=== PATIENT | male | born 1970 | race Two or more races ===

== ENCOUNTER 2018-10-10 10:00 | Inpatient (IN) | payer OTHER ==
--- NOTE | 2018-10-10 11:02 | PDOC ---
History of Present Illness - General History Source: Patient Exam Limitations: No Limitations <Katina Varghese - Last Filed: 10/10/18 15:07> - History of Present Illness Initial Comments: The patient is a 48 year old male, with a significant PMH of DM (compliant with PO meds), who presents to the emergency department today complaining of rectal bleeding for 2 weeks. Patient notes he has been noticing bright red blood in his stool and streaking the toilet bowl for the past two weeks. He notes he passes stool, without any pain, approximately twice a day. He reports associated diffuse achy abdominal pain, which is constant without a trigger. He also notes associated mild low back pain. Patient has tried motrin without relief. Patient states he saw Dr. Valladares yesterday, who prompted him to visit the ED to get checked. Patient admits to having history of same symptoms approximately 6 months ago, but did not follow up with his primary care doctor. The patient denies chest pain, shortness of breath, headache and dizziness. Denies fever, chills, nausea, vomit, diarrhea and constipation. Denies dysuria, frequency, urgency and hematuria. Denies recent travel or consumption of raw meats. Allergies: NKA Past surgical history: None reported Social history: No reported PCP: Dr. Valladares 10/10/18 11:32 <Lorrie Chowdhury - Last Filed: 10/10/18 16:19> - General Chief Complaint: Rectal Bleed Stated Complaint: RECTAL BLEED/PAIN, ACUTE Time Seen by Provider: 10/10/18 11:02 Past History - Past Medical History COPD: No Diabetes: Yes Hypercholesterolemia: Yes - Surgical History Appendectomy: Yes - Suicide/Smoking/Psychosocial Hx Smoking History: Never smoked Number of Cigarettes Smoked Daily: 3 Information on smoking cessation initiated: No Hx Alcohol Use: Yes (occasional) Drug/Substance Use Hx: No Substance Use Type: None <Katina Varghese - Last Filed: 10/10/18 15:07> <Lorrie Chowdhury - Last Filed: 10/10/18 16:19> - Past Medical History Allergies/Adverse Reactions: Allergies Allergy/AdvReac Type Severity Reaction Status Date / Time No Known Allergies Allergy Verified 10/10/18 10:04 Home Medications: Ambulatory Orders Ondansetron [Zofran Odt -] 4 mg SL TID #21 od.tablet 05/29/14 Sitagliptin Phos/Metformin HCl [Janumet 50-1,000 mg Tablet] 1 tab PO BID Review of Systems - Review of Systems Comments:: GENERAL/CONSTITUTIONAL: No fever or chills. No weakness. HEAD, EYES, EARS, NOSE AND THROAT: No change in vision. No ear pain or discharge. No sore throat. CARDIOVASCULAR: No chest pain or shortness of breath. RESPIRATORY: No cough, wheezing, or hemoptysis. GASTROINTESTINAL: +Rectal bleeding, with bright red blood in stool. No nausea, vomiting, diarrhea or constipation. GENITOURINARY: No dysuria, frequency, or change in urination. MUSCULOSKELETAL: +Diffuse achy abdominal pain. +Mild low back pain. No joint or muscle swelling. No neck pain. SKIN: No rash NEUROLOGIC: No headache, vertigo, loss of consciousness, or change in strength/ sensation. ENDOCRINE: No increased thirst. No abnormal weight change. HEMATOLOGIC/LYMPHATIC: No anemia, easy bleeding, or history of blood clots. ALLERGIC/IMMUNOLOGIC: No hives or skin allergy. 10/10/18 11:33 <Lorrie Chowdhury - Last Filed: 10/10/18 16:19> *Physical Exam - Vital Signs Last Vital Signs Temp Pulse Resp BP Pulse Ox 98 F 97 H 19 159/95 99 10/10/18 10:02 10/10/18 10:02 10/10/18 10:02 10/10/18 10:02 10/10/18 10:02 <Katina Varghese - Last Filed: 10/10/18 15:07> - Vital Signs Last Vital Signs Temp Pulse Resp BP Pulse Ox 98 F 97 H 19 159/95 99 10/10/18 10:02 10/10/18 10:02 10/10/18 10:02 10/10/18 10:02 10/10/18 10:02 - Physical Exam Comments: GENERAL: The patient is in no acute distress. HEAD: Normal with no signs of trauma. EYES: PERRLA, EOMI, sclera anicteric, conjunctiva clear. ENT: Ears normal, nares patent, oropharynx clear without exudates. Moist mucous membranes. NECK: Normal range of motion, supple without lymphadenopathy, JVD, or masses. LUNGS: Breath sounds equal, clear to auscultation bilaterally. No wheezes, and no crackles. HEART:Regular rate and rhythm, normal S1 and S2 without murmur, rub or gallop. ABDOMEN: Soft, nontender, normoactive bowel sounds. No distention. No guarding, no rebound. No masses palpable. RECTAL: +Blood tinged fluid present around rectum. No external hemorrhoids. EXTREMITIES: Normal range of motion, no edema. No clubbing or cyanosis. No erythema, or tenderness. NEUROLOGICAL: Cranial nerves II through XII grossly intact. Normal speech. No focal neurological deficits. MUSCULOSKELETAL: Back non-tender to palpation, no CVA tenderness SKIN: Warm, Dry, normal turgor, no rashes or lesions noted. 10/10/18 11:42 <Lorrie Chowdhury - Last Filed: 10/10/18 16:19> Moderate Sedation - Procedure Monitoring Vital Signs: Procedure Monitoring Vital Signs Temperature 98 F 10/10/18 10:02 Pulse Rate 97 H 10/10/18 10:02 Respiratory Rate 10/10/18 10:02 Blood Pressure 159/95 10/10/18 10:02 O2 Sat by Pulse Oximetry (%) 99 10/10/18 10:02 <Katina Varghese - Last Filed: 10/10/18 15:07> - Procedure Monitoring Vital Signs: Procedure Monitoring Vital Signs Temperature 98 F 10/10/18 10:02 Pulse Rate 97 H 10/10/18 10:02 Respiratory Rate 10/10/18 10:02 Blood Pressure 159/95 10/10/18 10:02 O2 Sat by Pulse Oximetry (%) 99 10/10/18 10:02 <Lorrie Chowdhury - Last Filed: 10/10/18 16:19> ED Treatment Course - LABORATORY CBC & Chemistry Diagram: 10/10/18 10:56 10/10/18 10:56 <Katina Varghese - Last Filed: 10/10/18 15:07> - LABORATORY CBC & Chemistry Diagram: 10/10/18 10:56 10/10/18 10:56 - ADDITIONAL ORDERS Additional order review: Laboratory Results 10/10/18 10:56 PT with INR 11.00 INR 0.93 PTT (Actin FS) 30.9 10/10/18 10:56 RBC 4.31 MCV 84.1 MCHC 32.0 RDW 13.1 MPV 8.2 Neutrophils % 57.7 Lymphocytes % 25.2 Monocytes % 10.9 H Eosinophils % 4.9 H Basophils % 1.3 - RADIOLOGY Radiograph Interpretation: EXAM#: TYPE/EXAM: RESULT: [id number] CT/ABDOMEN PELVIS CT W/O CONTR Abdomen and pelvis CT (without contrast) IMPRESSION: No definite CT findings of acute pathology are identified involving the gastrointestinal tract. Diffuse colonic fecal retention which is probably moderate. The urinary bladder volume is approximately 600 mL - ? somewhat prominent physiologic distention versus early/developing retention. Additional evaluation utilizing pre and post void sonography may be considered. Reported By: Gregg Hernandez MD 10/10/18 13:31 10/10/18 14:13 - Consult/PCP Time Called: 14:21 (Called Dr. Valladares's call service, awaiting call back) Case discussed with personal care physician: Jj Valladares Case discussed with consulting physician: Zully Coleman (4:[address] Coleman concering patient's care ) - Additional Consults Time Called: 14:51 (Spoke with Dr. Valladares concerning patient's care ) Time Called: 15:05 (Spoke with Dr. Castillo concerning patient's care) <Lorrie Chowdhury - Last Filed: 10/10/18 16:19> Medical Decision Making - Medical Decision Making 10/10/18 15:08 Laboratory Tests 06/11/18 06/11/18 10/10/18 17:56 17:56 10:56 WBC 6.0 6.9 Hgb 13.0 11.6 L Hct 38.5 36.3 Plt Count 274 250 INR BUN 22 H Creatinine 1.2 Stool Occult Blood 10/10/18 10/10/18 10/10/18 10:56 10:56 11:10 WBC Hgb Hct Plt Count INR 0.93 BUN 27 H Creatinine 1.8 H Stool Occult Blood Positive CT: constipation, no colitis Case reviewed with Dr Valladares He is concerned about this patient and would like him to be admitted Call placed to Gokul Marrero, requesting Dr Hipolito Ruiz pace call <Katina Varghese - Last Filed: 10/10/18 15:07> *DC/Admit/Observation/Transfer - Discharge Dispostion Decision to Admit order: Yes <Katina Varghese - Last Filed: 10/10/18 15:07> - Attestations Scribe Attestion: Documentation prepared by OLMAN Navarrete, acting as medical sociologist for Katina Varghese MD/DO. 10/10/18 11:33 <Lorrie Chowdhury - Last Filed: 10/10/18 16:19> Diagnosis at time of Disposition: Rectal bleeding - Discharge Dispostion Condition at time of disposition: Stable
[2018-10-10 11:09] LABS: BASO % 1.3 % (0-2.0); EOS % 4.9 % (0-4.5); HEMATOCRIT 36.3 % (35.4-49); HEMOGLOBIN 11.6 GM/dL (11.7-16.9); LYMPH % 25.2 % (8-40); MCH 26.9 pg (25.7-33.7); MEAN CELL VOLUME 84.1 fl (80-96); MEAN PLT VOLUME 8.2 fl (7.5-11.1); MONO % 10.9 % (3.8-10.2); NEUT % 57.7 % (42.8-82.8); PLATELET COUNT 250 K/MM3 (134-434); RBC 4.31 M/mm3 (4.00-5.60); RDW 13.1 % (11.9-15.9); WHITE BLOOD COUNT 6.9 K/mm3 (4.0-10.0)
[2018-10-10] MEDS ORDERED: SODIUM CHLORIDE 1,000 ML IV STA (11:17)
[2018-10-10 11:21] LABS: INR 0.93 (0.83-1.09)
[2018-10-10 11:24] LABS: ACTIVATED PTT 30.9 SECONDS (25.2-36.5)
[2018-10-10 11:38] LABS: ALBUMIN 3.3 g/dl (3.4-5.0); ALK PHOS 86 U/L (45-117); ANION GAP 5 MMOL/L (8-16); BILIRUBIN,TOTAL 0.2 mg/dL (0.2-1); BLOOD UREA NITROGEN 27 mg/dL (7-18); CALCIUM 8.5 mg/dL (8.5-10.1); CHLORIDE 106 mmol/L (98-107); CO2 26 mmol/L (21-32); CREATININE 1.8 mg/dL (0.55-1.3); GLUCOSE,RANDOM 206 mg/dL (74-106); POTASSIUM 4.4 mmol/L (3.5-5.1); SGOT/AST 15 U/L (15-37); SGPT/ALT 29 U/L (13-61); SODIUM 138 mmol/L (136-145); TOT PROT 6.8 g/dl (6.4-8.2)
--- NOTE | 2018-10-10 17:56 | HP ---
Admitting History and Physical - Primary Care Physician PCP: Jj Valladares ([facility]) - Admission Chief Complaint: Rectal bleeding History of Present Illness: The patient is a 48 year old male, with a significant PMH of DM (compliant with PO meds), who presents to the emergency department today complaining of rectal bleeding for 2 weeks. Patient notes he has been noticing bright red blood in his stool and streaking the toilet bowl for the past two weeks. He notes he passes stool, without any pain, approximately twice a day. He reports associated diffuse achy abdominal pain, which is constant without a trigger. He also notes associated mild low back pain. Patient has tried motrin without relief. Patient states he saw Dr. Valladares yesterday, who prompted him to visit the ED to get checked. Patient admits to having history of same symptoms approximately 6 months ago, but did not follow up with his primary care doctor. The patient denies chest pain, shortness of breath, headache and dizziness. Denies fever, chills, nausea, vomit, diarrhea and constipation. Denies dysuria, frequency, urgency and hematuria. Denies recent travel or consumption of raw meats. History Source: Patient Limitations to Obtaining History: No Limitations - Past Medical History Cardiovascular: Yes: Hyperlipdemia Gastrointestinal: Yes: Constipation, GI Bleed Renal/: Yes: BPH Endocrine: Yes: Diabetes Mellitus (NIDDM) - Smoking History Smoking history: Never smoked Aproximately how many cigarettes per day: 3 - Alcohol/Substance Use Hx Alcohol Use: Yes (occasional) Home Medications - Allergies Allergies/Adverse Reactions: Allergies Allergy/AdvReac Type Severity Reaction Status Date / Time No Known Allergies Allergy Verified 10/10/18 10:04 - Home Medications Home Medications: Ambulatory Orders Aspirin [ASA -] 81 mg PO DAILY 10/10/18 Glimepiride 4 mg PO DAILY 10/10/18 Krill Oil 10/10/18 Simvastatin 20 mg PO DAILY 10/10/18 Sitagliptin Phos/Metformin HCl [Janumet 50-500 mg Tablet] 1 each PO HS 10/10/18 Trulicity 10/10/18 Review of Systems - Review of Systems Constitutional: reports: No Symptoms Eyes: reports: No Symptoms HENT: reports: No Symptoms Neck: reports: No Symptoms Cardiovascular: reports: No Symptoms Respiratory: reports: No Symptoms Gastrointestinal: reports: Constipation, Rectal Bleeding Genitourinary: reports: No Symptoms Breasts: reports: No Symptoms Reported Musculoskeletal: reports: No Symptoms Integumentary: reports: No Symptoms Neurological: reports: No Symptoms Endocrine: reports: No Symptoms Hematology/Lymphatic: reports: No Symptoms Psychiatric: reports: No Symptoms Physical Examination Vital Signs: Vital Signs Temperature 98.0 F 10/10/18 14:00 Pulse Rate 84 10/10/18 14:00 Respiratory Rate 18 10/10/18 14:00 Blood Pressure 145/82 10/10/18 14:00 O2 Sat by Pulse Oximetry (%) 98 10/10/18 14:00 Constitutional: Yes: Well Nourished, No Distress, Calm Cardiovascular: Yes: Regular Rate and Rhythm Respiratory: Yes: Regular Gastrointestinal: Yes: Normal Bowel Sounds, Soft Musculoskeletal: Yes: WNL Extremities: Yes: WNL Edema: No Peripheral Pulses WNL: Yes Neurological: Yes: Alert, Oriented Psychiatric: Yes: Alert, Oriented Labs: CBC, BMP 10/10/18 10:56 10/10/18 10:56 Imaging - Results Cat Scan: Report Reviewed Problem List - Problems (1) Rectal bleeding Assessment/Plan: -Guaiac positive -GI consult -PPI -IVF -Miralax for constipation -last BM today, mild constipation and straining during BM Code(s): K62.5 - HEMORRHAGE OF ANUS AND RECTUM (2) LISE (acute kidney injury) Assessment/Plan: -U/S renal/bladder -CT abd/pelvis reviewed -bladder scan now, insert kohler if retaining >300 ml -monitor trend -Nephrology consult -IVF -last Cr 1.48 outpatient in 09/2018 Code(s): N17.9 - ACUTE KIDNEY FAILURE, UNSPECIFIED (3) Diabetes Assessment/Plan: -BGM AC HS -diabetic clear liquid diet for now -Novolog sliding scale -last A1c 7.3 outpatient -Repeat A1C -endocrine consult -Avoid oral hypoglycemics, given renal function Code(s): E11.9 - TYPE 2 DIABETES MELLITUS WITHOUT COMPLICATIONS (4) Hyperlipidemia Assessment/Plan: -outpatient labs from Dr Valladares's office show LDL of 184 mg/dl in 09/2018 -Only on simvastratin 20 mg MWF -d/c simvastatin -initiate high intensity statin, atorvastatin 40 mg po hs will LDL goal of <70 mg/dl Code(s): E78.5 - HYPERLIPIDEMIA, UNSPECIFIED Assessment/Plan see problem list is a [employer] assistant, spoke to her over the phone about assessment and plan. patient's non compliance is a major issue
[2018-10-10 18:45] VITALS: BMI 33.0
[2018-10-10] MEDS: PANTOPRAZOLE SODIUM 80 MG in SODIUM CHLORIDE 100 ML IVPB SCH (18:46)
[2018-10-10] MEDS: SODIUM CHLORIDE 1,000 ML IV SCH (18:46)
--- NOTE | 2018-10-10 19:34 | CONS ---
DATE OF CONSULTATION: DATE OF DICTATION: 10/10/2018 GASTROENTEROLOGY CONSULTATION HISTORY OF PRESENT ILLNESS: The patient is a 48-year-old man with a past medical history of diabetes and hyperlipidemia, appendectomy in the past who reports complaints of intermittent hematochezia over the past couple of weeks. He reports some more episodes approximately 6 months ago and never sought medical attention. He also does admit to having constipation with some achy abdominal pain which has been also intermittent over the past couple of months. He denies any melena, any nausea, vomiting, or hematemesis, or weight loss, syncope. PAST MEDICAL AND SURGICAL HISTORY: As listed in the HPI. Of note, he has never had an endoscopic evaluation in the past. ALLERGIES: No known drug allergies. SOCIAL HISTORY: Does not smoke. Occasional alcohol. No intravenous drug abuse. HOME MEDICATIONS: Reviewed. FAMILY HISTORY: No history of GI or oncological malignancy. REVIEW OF SYSTEMS: Negative except for pertinent positives in the HPI. PHYSICAL EXAMINATION: VITAL SIGNS: Temperature 98, pulse 84, respiratory rate 12, blood pressure 147/87, pulse oximetry 97% on room air. GENERAL: In no acute distress. Pleasant man. HEENT: Anicteric sclerae. CARDIOVASCULAR: S1, S2, regular rate and rhythm. LUNGS: Bilaterally clear to auscultation. ABDOMEN: Soft, nontender. EXTREMITIES: No edema. LABORATORY: White blood cell count 6.9, hemoglobin and hematocrit 11/36, MCV 84, platelet count 250. INR 0.93. Sodium 138, potassium 4.4, BUN/creatinine 27/1.8, glucose 206, total bilirubin 0.2, AST/ALT 15/29 respectively, alkaline phosphatase 86. CT scan of the abdomen and pelvis was performed in the emergency room without contrast revealed no acute pathology, diffuse colonic fecal retention which is moderate, questionable physiological distention of the urinary bladder versus retention. IMPRESSION: Intermittent episodes of hematochezia associated with constipation, which is chronic in nature. There was no sign of an overt gastrointestinal bleed at this time. He is hemodynamically stable. Episodes of hematochezia may be secondary to straining, hemorrhoids. However, polyps and adenocarcinoma cannot be excluded at this time. RECOMMENDATION: Advance to clear liquid diet. Would continue PPI therapy. Avoid NSAID. Trend H and H daily while hospitalized. Will plan for diagnostic upper endoscopy and colonoscopy on Monday. He will be prepped tomorrow for his procedures. DO INGRID GOOD/[id number]
[2018-10-11] MEDS ORDERED: ACETAMINOPHEN 1000 MG/100 ML VIAL (NON FORMULARY) IVPB ONE (01:57)
[2018-10-11] MEDS: SODIUM CHLORIDE 1,000 ML IV SCH ×2 (04:42→11:30)
[2018-10-11] MEDS: PANTOPRAZOLE SODIUM 80 MG in SODIUM CHLORIDE 100 ML IVPB SCH (04:42)
[2018-10-11] MEDS: INSULIN SLIDING SCALE (NOVOLOG) 1 VIAL SQ SCH ×3 (06:15→16:23)
[2018-10-11 07:33] LABS: BASO % 1.2 % (0-2.0); EOS % 6.9 % (0-4.5); HEMATOCRIT 33.5 % (35.4-49); HEMOGLOBIN 10.8 GM/dL (11.7-16.9); LYMPH % 37.9 % (8-40); MCHC 32.4 g/dl (32.0-35.9); MEAN CELL VOLUME 83.4 fl (80-96); MEAN PLT VOLUME 8.1 fl (7.5-11.1); MONO % 11.4 % (3.8-10.2); NEUT % 42.6 % (42.8-82.8); PLATELET COUNT 238 K/MM3 (134-434); RBC 4.01 M/mm3 (4.00-5.60)
[2018-10-11 07:45] LABS: ALBUMIN 2.9 g/dl (3.4-5.0); ALK PHOS 72 U/L (45-117); ANION GAP 4 MMOL/L (8-16); BILIRUBIN,TOTAL 0.4 mg/dL (0.2-1); BLOOD UREA NITROGEN 18 mg/dL (7-18); CALCIUM 8.1 mg/dL (8.5-10.1); CHLORIDE 108 mmol/L (98-107); CO2 28 mmol/L (21-32); CREATININE 1.6 mg/dL (0.55-1.3); GLUCOSE,RANDOM 113 mg/dL (74-106); POTASSIUM 3.9 mmol/L (3.5-5.1); SGOT/AST 17 U/L (15-37); SGPT/ALT 29 U/L (13-61); SODIUM 140 mmol/L (136-145)
--- NOTE | 2018-10-11 08:40 | PN ---
GI Progress Note Subjective: No bleeding. The rectal bleeding occurs only with a bowel movement No abdominal pain Describes frequent advil use No diarrhea - Objective Vital Signs: Vital Signs Temperature 98.1 F 10/11/18 06:00 Pulse Rate 81 10/11/18 06:00 Respiratory Rate 18 10/11/18 06:00 Blood Pressure 135/79 10/11/18 06:00 O2 Sat by Pulse Oximetry (%) 99 10/10/18 21:00 Constitutional: Calm Eyes: No: Sclera Icterus Cardiovascular: Yes: Regular Rate and Rhythm Respiratory: Yes: CTA Bilaterally Gastrointestinal Inspection: No: Distention ...Auscultate: Yes: Normoactive Bowel Sounds ...Palpate: Yes: Soft. No: Guarding, Hepatomegaly, Splenomegaly, Tenderness ...Percussion: No: Tympanitic Edema: No (No LE edema) Neurological: Yes: Alert Labs: CBC, BMP 10/11/18 06:30 10/11/18 06:30 INR, PTT INR 0.93 (0.83-1.09) 10/10/18 10:56 Problem List - Problems (1) Rectal bleeding Assessment/Plan: Hemodynamically stable without overt bleeding Suspected lower GI bleed given that bleeding occurs only with bowel movements and hemodynamic stability Discussed colonoscopy for further evaluation / treatment. Discussed potential risks of the procedure like but not limited to bleeding, perforation requiring surgery to repair, infection, sedation medication effects all of which could be potentially life threatening. He has agreed to the procedure. Consent obtained Monitor H/H Clears If active bleeding with change in hemodynamics, transfer to ICU setting Code(s): K62.5 - HEMORRHAGE OF ANUS AND RECTUM (2) Eosinophilia Assessment/Plan: Peripheral eosinophilia as well as elevated monocytes. Will need evaluation per PMD. Consider heme eval Code(s): D72.1 - EOSINOPHILIA
[2018-10-11] MEDS ORDERED: PANTOPRAZOLE SODIUM 40 MG in SODIUM CHLORIDE 100 ML IVPB SCH (10:00)
--- NOTE | 2018-10-11 11:15 | PN ---
Progress Note, Physician Chief Complaint: patient in bed complains of low back pain going for colonscopy tmw h/h ok for now bun/cr is improving,renal sono normal - Current Medication List Current Medications: Active Medications Atorvastatin Calcium (Lipitor -) 40 mg PO HS [facility] Bisacodyl (Dulcolax -) 20 mg PO ONCE ONE Stop: 10/11/18 14:01 Sodium Chloride (Normal Saline -) 1,000 mls @ 75 mls/hr IV ASDIR [facility] Insulin Aspart (Novolog Vial Sliding Scale -) 1 vial SQ TIDAC [facility]; Protocol Last Admin: 10/11/18 06:15 Dose: Not Given Polyethylene Glycol (Miralax (For Daily Use) -) 17 gm PO DAILY [facility] Tamsulosin HCl (Flomax -) 0.4 mg PO DAILY@0830 [facility] - Objective Vital Signs: Vital Signs Temperature 98.1 F 10/11/18 06:00 Pulse Rate 81 10/11/18 06:00 Respiratory Rate 18 10/11/18 06:00 Blood Pressure 135/79 10/11/18 06:00 O2 Sat by Pulse Oximetry (%) 99 10/10/18 21:00 Constitutional: Yes: Calm Cardiovascular: Yes: Regular Rate and Rhythm, S1, S2 Respiratory: Yes: CTA Bilaterally Gastrointestinal: Yes: Normal Bowel Sounds, Soft Musculoskeletal: Yes: Other (no back tenderness on exam) Edema: No Neurological: Yes: Alert, Oriented Labs: CBC, BMP 10/11/18 06:30 10/11/18 06:30 INR, PTT INR 0.93 (0.83-1.09) 10/10/18 10:56 Problem List - Problems (1) Rectal bleeding Assessment/Plan: to go for colonoscopy tmw Code(s): K62.5 - HEMORRHAGE OF ANUS AND RECTUM (2) LISE (acute kidney injury) Assessment/Plan: ivf bun/cr improving renal sono normal Code(s): N17.9 - ACUTE KIDNEY FAILURE, UNSPECIFIED (3) Diabetes Assessment/Plan: hgba1c 7.8 slding scale Code(s): E11.9 - TYPE 2 DIABETES MELLITUS WITHOUT COMPLICATIONS Qualifiers: Diabetes mellitus type: type 2 (4) Eosinophilia Assessment/Plan: increasing eosinophil count with inc monocytes will get heme to see patient will check UA as well Code(s): D72.1 - EOSINOPHILIA (5) Hyperlipidemia Assessment/Plan: statin dose increased Code(s): E78.5 - HYPERLIPIDEMIA, UNSPECIFIED
[2018-10-11] MEDS: POLYETHYLENE GLYCOL 3350 119 GM BTL PO SCH (11:25)
[2018-10-11 12:04] LABS: CHOLESTEROL 224 mg/dL (50-200); HDL CHOLESTEROL 31 mg/dL (40-60); TRIGLYCERIDES 244 mg/dL (0-150)
[2018-10-11 13:11] LABS: HEMATOCRIT 33.6 % (35.4-49); HEMOGLOBIN 11.7 GM/dL (11.7-16.9); MCH 28.6 pg (25.7-33.7); MCHC 34.8 g/dl (32.0-35.9); PLATELET COUNT 260 K/MM3 (134-434); RBC 4.09 M/mm3 (4.00-5.60); RDW 13.4 % (11.9-15.9); WHITE BLOOD COUNT 5.2 K/mm3 (4.0-10.0)
[2018-10-11] MEDS: PANTOPRAZOLE 40 MG TABLET (FP) PO SCH (13:41)
[2018-10-11] MEDS ORDERED: BISACODYL 5 MG TABLET.DR (FP) PO ONE (14:00)
--- NOTE | 2018-10-11 14:02 | EKG ---
Test Reason : Blood Pressure : / mmHG Vent. Rate : 073 BPM Atrial Rate : 073 BPM P-R Int : 168 ms QRS Dur : 096 ms QT Int : 378 ms P-R-T Axes : 005 018 -04 degrees QTc Int : 416 ms NORMAL SINUS RHYTHM NORMAL ECG NO PREVIOUS ECGS AVAILABLE Confirmed by OSMAN ERICKSON MD ([id number]) on 10/11/2018 2:01:46 PM Referred By: KAREN HERBERT Confirmed By:OSMAN ERICKSON MD
--- NOTE | 2018-10-11 14:36 | CONSULT ---
Consult - text type - Consultation Consultation Note: Renal Consult for LISE vs. CKD This is a 45 year old gentleman with hx of DM, BPH, HLD who presented with complaints of rectal bleeding x 2 weeks and found to have LISE with Cr of 1.6. Prior Cr values ~1-1.2 with one peak at 1.5. Denies any history of CKD. Was prescribed flomax for possible BPH but has yet to start taking them. Reports frequent use of Advil for body aches and headaches. Denies any hematuria , flank pain, dysuria. No N/V. No skin rash. PMhx: as above Allergies: NKDA Family Hx: NC Social Hx: no T/A/D ROS: as per HPI, all other pertinent ros negative Home Medications Medication Instructions Recorded Aspirin [ASA -] 81 mg PO DAILY 10/10/18 Glimepiride 4 mg PO DAILY 10/10/18 Krill Oil 10/10/18 Simvastatin 20 mg PO DAILY 10/10/18 Sitagliptin Phos/Metformin HCl 1 each PO HS 10/10/18 [Janumet 50-500 mg Tablet] Trulicity 10/10/18 Vital Signs Temperature 97.5 F L 10/11/18 10:05 Pulse Rate 78 10/11/18 10:05 Respiratory Rate 18 10/11/18 10:05 Blood Pressure 144/90 10/11/18 10:05 O2 Sat by Pulse Oximetry (%) 99 10/10/18 21:00 NAD awake and alert well appearing neck supple, no JVD RRR, No M/R CTA, no rales or wheeze soft NT/ND, no bladder distension No LE edema, clubbing or cyanosis No focal neurologic defects CBC, BMP 10/11/18 12:56 10/11/18 06:30 Current Medications Atorvastatin Calcium (Lipitor -) 40 mg PO HS [facility] Sodium Chloride (Normal Saline -) 1,000 mls @ 75 mls/hr IV ASDIR [facility] Last Admin: 10/11/18 11:30 Dose: 75 mls/hr Insulin Aspart (Novolog Vial Sliding Scale -) 1 vial SQ TIDAC [facility]; Protocol Last Admin: 10/11/18 11:26 Dose: Not Given Pantoprazole Sodium (Protonix -) 40 mg PO DAILY [facility] Last Admin: 10/11/18 13:41 Dose: 40 mg Polyethylene Glycol (Miralax (For Daily Use) -) 17 gm PO DAILY [facility] Last Admin: 10/11/18 11:25 Dose: Not Given Tamsulosin HCl (Flomax -) 0.4 mg PO DAILY@0830 [facility] 45 year old gentleman with hx of DM, BPH, HLD who presented with complaints of rectal bleeding x 2 weeks #LISE vs CKD #Rectal bleeding #DM type 2 #BPH LISE likely due to hemodynamic changes vs. ATN from NSAIDs will check urine studies for FeNa, UPCR, and urine eosinophils Agree with trial of IVF Trend renal function and electrolytes daily Avoid NSAIDs and IV contrast until renal function returns to baseline Continue flomax, strict I and O GI bleed work up as per GI on PPI Continue SC insulin as needed hold Metformin because of Cr > 1.5 Thank you Will follow Bryan Pinto DO
[2018-10-11] MEDS ORDERED: PEG3350/SOD SULF,BICARB,CL/KCL 4,000 ML SOLN.RECON PO ONE (15:00)
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
[2018-10-11 16:32] LABS: URINE APPEARANCE CLEAR; URINE BILIRUBIN NEGATIVE (<2.0 mg/dL); URINE COLOR COLORLESS; URINE GLUCOSE (UA) NEGATIVE (NEGATIVE); URINE KETONE NEGATIVE (NEGATIVE); URINE LEUK ESTERASE NEGATIVE (NEGATIVE); URINE NITRITE NEGATIVE (NEGATIVE); URINE PROTEIN 2+ (NEGATIVE); URINE UROBILINOGEN NEGATIVE mg/dL (0.2-1.0)
[2018-10-11 16:38] LABS: EPI CELLS RARE /HPF (FEW)
[2018-10-11 17:48] LABS: URINE APPEARANCE CLEAR; URINE BILIRUBIN NEGATIVE (<2.0 mg/dL); URINE COLOR COLORLESS; URINE GLUCOSE (UA) NEGATIVE (NEGATIVE); URINE KETONE NEGATIVE (NEGATIVE); URINE LEUK ESTERASE NEGATIVE (NEGATIVE); URINE NITRITE NEGATIVE (NEGATIVE); URINE PROTEIN 1+ (NEGATIVE); URINE UROBILINOGEN NEGATIVE mg/dL (0.2-1.0)
[2018-10-11] MEDS ORDERED: ATORVASTATIN CA 40 MG TABLET (FP) PO SCH (22:00)
--- NOTE | 2018-10-11 23:37 | PN ---
Teaching Attending Note Name of Resident: Lesli Gentile ATTENDING PHYSICIAN STATEMENT I saw and evaluated the patient. I reviewed the resident's note and discussed the case with the resident. I agree with the resident's findings and plan as documented. ASSESSMENT AND PLAN: 48 yr old man with DMII presents with rectal bleed Consulted for peripheral blood eosinophilia and monocytosis. Problem List: eosinophilia, monocytosis(absolute counts: 414 and 714 from AM blood draw) DMII LISE rectal bleeding normocytic anemia(likely from acute blood loss) A/P: This could be reactionary, elevated from acute process will check ESR, CRP, FLOW, HIV,stool ova and parasite, strongyloides-ab and AMOS screen
[2018-10-12] MEDS: INSULIN SLIDING SCALE (NOVOLOG) 1 VIAL SQ SCH ×2 (06:33→12:10)
[2018-10-12 08:07] LABS: BASO % 1.4 % (0-2.0); EOS % 6.3 % (0-4.5); HEMATOCRIT 34.2 % (35.4-49); HEMOGLOBIN 11.2 GM/dL (11.7-16.9); LYMPH % 28.9 % (8-40); MCH 27.1 pg (25.7-33.7); MCHC 32.7 g/dl (32.0-35.9); MEAN CELL VOLUME 82.7 fl (80-96); MEAN PLT VOLUME 7.7 fl (7.5-11.1); MONO % 8.1 % (3.8-10.2); NEUT % 55.3 % (42.8-82.8); PLATELET COUNT 254 K/MM3 (134-434); RBC 4.14 M/mm3 (4.00-5.60); RDW 13.2 % (11.9-15.9); WHITE BLOOD COUNT 5.4 K/mm3 (4.0-10.0)
[2018-10-12] MEDS: TAMSULOSIN HCL 0.4 MG CAP PO SCH ×2 (08:51→12:10)
[2018-10-12 09:03] LABS: ALBUMIN 3.1 g/dl (3.4-5.0); ALK PHOS 77 U/L (45-117); ANION GAP 8 MMOL/L (8-16); BILIRUBIN,TOTAL 0.4 mg/dL (0.2-1); BLOOD UREA NITROGEN 16 mg/dL (7-18); CALCIUM 8.6 mg/dL (8.5-10.1); CHLORIDE 107 mmol/L (98-107); CO2 27 mmol/L (21-32); CREATININE 1.5 mg/dL (0.55-1.3); GLUCOSE,RANDOM 156 mg/dL (74-106); MAGNESIUM 1.8 mg/dL (1.8-2.4); PHOSPHOROUS 3.2 mg/dL (2.5-4.9); POTASSIUM 4.2 mmol/L (3.5-5.1); SGOT/AST 11 U/L (15-37); SGPT/ALT 26 U/L (13-61); SODIUM 142 mmol/L (136-145); TOT PROT 6.5 g/dl (6.4-8.2)
[2018-10-12] MEDS: POLYETHYLENE GLYCOL 3350 119 GM BTL PO SCH (09:05)
[2018-10-12] MEDS: PANTOPRAZOLE 40 MG TABLET (FP) PO SCH (09:05)
--- NOTE | 2018-10-12 10:36 | PN ---
Progress Note (short form) - Note Progress Note: EGD/Colonoscopy complete. Reports left in procedural section of physical chart and to be scanned into [employer]. Problem List - Problems (1) Rectal bleeding Code(s): K62.5 - HEMORRHAGE OF ANUS AND RECTUM (2) Eosinophilia Code(s): D72.1 - EOSINOPHILIA
[2018-10-12] MEDS ORDERED: HYDROCORTISONE ACETATE 25 MG/SUPP.RECT RC SCH (11:00)
[2018-10-12] MEDS ORDERED: PT OWN MED DRAWER 7, Y5N ONE (11:23)
[2018-10-12] MEDS: SODIUM CHLORIDE 1,000 ML IV SCH (12:06)
--- NOTE | 2018-10-12 13:38 | CONSULT ---
Consult Consult Specialty:: endocrine Referred by:: arie kellogg np Reason for Consultation:: diabetes mellitus 2 - History of Present Illness Chief Complaint: rectal bleeding and back pain History of Present Illness: 48 year old male, with a significant PMH of DM (compliant with PO meds), who presents to the emergency department today complaining of rectal bleeding for 2 weeks. Patient notes he had been noticing bright red blood in his stool and streaking the toilet bowl for the past two weeks. He notes he passes stool, without any pain, approximately twice a day. He reports associated diffuse achy abdominal pain, which is constant without a trigger. He also notes associated mild low back pain. sp colonoscopy,found to have hemoroids and bleeding has stopped. he has been compliant with diet and diabetic meds but sugars have been higher since diet changed. - Past Medical History Cardio/Vascular: Yes: Hyperlipdemia Gastrointestinal: Yes: Constipation, GI Bleed Renal/: Yes: BPH Endocrine: Yes: Diabetes Mellitus (NIDDM) - Alcohol/Substance Use Hx Alcohol Use: Yes (occasional) - Smoking History Smoking history: Never smoked Have you smoked in the past 12 months: Yes Aproximately how many cigarettes per day: 3 Home Medications - Allergies Allergies/Adverse Reactions: Allergies Allergy/AdvReac Type Severity Reaction Status Date / Time No Known Allergies Allergy Verified 10/10/18 10:04 - Home Medications Home Medications: Ambulatory Orders Aspirin [ASA -] 81 mg PO DAILY 10/10/18 Glimepiride 4 mg PO DAILY 10/10/18 Krill Oil 10/10/18 Simvastatin 20 mg PO DAILY 10/10/18 Sitagliptin Phos/Metformin HCl [Janumet 50-500 mg Tablet] 1 each PO HS 10/10/18 Trulicity 10/10/18 Review of Systems - Review of Systems Constitutional: reports: Weakness Eyes: reports: Blurred Vision HENT: reports: No Symptoms Neck: reports: No Symptoms Cardiovascular: reports: No Symptoms Respiratory: reports: No Symptoms Gastrointestinal: reports: Melena, Nausea, Rectal Bleeding Genitourinary: reports: No Symptoms Breasts: reports: No Symptoms Reported Musculoskeletal: reports: Joint Pain, Joint Swelling, Muscle Pain, Muscle Cramps , Muscle Weakness Integumentary: reports: No Symptoms Neurological: reports: Weakness Endocrine: reports: Unexplained Weight Gain Physical Exam Vital Signs: Vital Signs Temperature 97.5 F L 01/11/19 11:15 Pulse Rate 71 10/12/18 11:15 Respiratory Rate 20 10/12/18 11:15 Blood Pressure 161/95 10/12/18 11:15 O2 Sat by Pulse Oximetry (%) 18 L 10/12/18 11:02 Constitutional: Yes: Anxious Eyes: Yes: EOM Intact HENT: Yes: Normocephalic Neck: Yes: Trachea Midline Cardiovascular: Yes: Regular Rate and Rhythm Respiratory: Yes: CTA Bilaterally Gastrointestinal: Yes: Normal Bowel Sounds ...Rectal Exam: Yes: Deferred Renal/: Yes: WNL Breast(s): Yes: WNL Musculoskeletal: Yes: Muscle Pain, Muscle Weakness Extremities: Yes: WNL Neurological: Yes: Alert, Oriented Labs: CBC, BMP 10/12/18 07:30 10/12/18 07:30 Problem List - Problems (1) LISE (acute kidney injury) Code(s): N17.9 - ACUTE KIDNEY FAILURE, UNSPECIFIED (2) Diabetes Code(s): E11.9 - TYPE 2 DIABETES MELLITUS WITHOUT COMPLICATIONS Qualifiers: Diabetes mellitus type: type 2 (3) Eosinophilia Code(s): D72.1 - EOSINOPHILIA (4) Hyperlipidemia Code(s): E78.5 - HYPERLIPIDEMIA, UNSPECIFIED (5) Rectal bleeding Code(s): K62.5 - HEMORRHAGE OF ANUS AND RECTUM (6) Abdominal pain Code(s): R10.9 - UNSPECIFIED ABDOMINAL PAIN (7) Diarrhea Code(s): R19.7 - DIARRHEA, UNSPECIFIED (8) Nausea and vomiting Code(s): R11.2 - NAUSEA WITH VOMITING, UNSPECIFIED Assessment/Plan Current Active Problems LISE (acute kidney injury) (Acute) Diabetes (Acute) Eosinophilia (Acute) Hyperlipidemia (Acute) Rectal bleeding (Acute) Abnormal Lab Results 10/11/18 10/11/18 10/11/18 14:00 16:15 16:15 Hgb Hct Eosinophils % ESR Creatinine Random Glucose Hemoglobin A1c % AST C-Reactive Protein Albumin Ur Specific Uneeda 1.006 L Urine Protein 2+ H Urine Blood 1+ H U Random Total Protein 28.4 H Ur Random Sodium 38 L 10/11/18 10/12/18 10/12/18 16:15 07:30 07:30 Hgb 11.2 L Hct 34.2 L Eosinophils % 6.3 H ESR Creatinine 1.5 H Random Glucose 156 H Hemoglobin A1c % AST 11 L C-Reactive Protein Albumin 3.1 L Ur Specific Uneeda 1.003 L Urine Protein 1+ H Urine Blood 1+ H U Random Total Protein Ur Random Sodium 10/12/18 10/12/18 10/12/18 07:30 07:30 07:30 Hgb Hct Eosinophils % ESR 44 H Creatinine Random Glucose Hemoglobin A1c % 7.8 H AST C-Reactive Protein 0.7 H Albumin Ur Specific Uneeda Urine Protein Urine Blood U Random Total Protein Ur Random Sodium Laboratory Tests 10/11/18 10/12/18 10/12/18 16:06 06:29 07:30 POC Glucometer 153 174 Random Glucose 156 H 10/12/18 11:45 POC Glucometer 221 Random Glucose plan: bgm qid novolog insulin doses Current Medications Generic Name Dose Route Start Last Admin Trade Name Freq PRN Reason Stop Dose Admin Atorvastatin Calcium 40 mg 10/11/18 22:00 10/11/18 21:41 Lipitor - PO 40 mg HS MYKE Administration Hydrocortisone Acetate 25 mg 10/12/18 11:00 10/12/18 12:11 Anusol Hc Suppository - RC 10/17/18 10:59 25 mg BID MYKE Administration Sodium Chloride 1,000 mls @ 75 mls/hr 10/11/18 10:19 10/12/18 12:06 Normal Saline - IV Not Given ASDIR [facility] Insulin Aspart 1 vial 10/11/18 07:00 10/12/18 12:10 Novolog Vial Sliding Scale - SQ 2 units TIDAC [facility] Administration Protocol Polyethylene Glycol 17 gm 10/11/18 10:00 10/12/18 09:05 Miralax (For Daily Use) - PO Not Given DAILY [facility] Tamsulosin HCl 0.4 mg 10/12/18 08:30 10/12/18 08:51 Flomax - PO Not Given DAILY@0830 [facility] outpatient restart januvia 50mg bid avoid nsaids asa follow up outpatient
[2018-10-12 14:56] VITALS: BP 157/97; PULSE 88; TEMP 98
--- NOTE | 2018-10-12 15:21 | DS ---
Physical Examination Vital Signs: Vital Signs Temperature 98.0 F 10/12/18 14:53 Pulse Rate 88 10/12/18 14:53 Respiratory Rate 20 10/12/18 14:53 Blood Pressure 157/97 10/12/18 14:53 O2 Sat by Pulse Oximetry (%) 18 L 10/12/18 11:02 Constitutional: Yes: Well Nourished, No Distress, Calm Eyes: Yes: Conjunctiva Clear Neck: Yes: Supple Cardiovascular: Yes: Regular Rate and Rhythm Respiratory: Yes: Regular, CTA Bilaterally Gastrointestinal: Yes: Normal Bowel Sounds, Soft Musculoskeletal: Yes: WNL Extremities: Yes: WNL Edema: No Integumentary: Yes: WNL Neurological: Yes: Alert, Oriented Psychiatric: Yes: Alert, Oriented Labs: CBC, [facility] 10/12/18 07:30 10/12/18 07:30 <Michelle Key - Last Filed: 10/12/18 15:31> Vital Signs: Vital Signs Temperature 98.0 F 10/12/18 14:53 Pulse Rate 88 10/12/18 14:53 Respiratory Rate 20 10/12/18 14:53 Blood Pressure 157/97 10/12/18 14:53 O2 Sat by Pulse Oximetry (%) 18 L 10/12/18 11:02 Labs: CBC, BMP 10/12/18 07:30 10/12/18 07:30 <Melanie Treadwell - Last Filed: 10/13/18 08:48> Discharge Summary Reason For Visit: RECTAL HEMORRHAGE Current Active Problems LISE (acute kidney injury) (Acute) Diabetes (Acute) Eosinophilia (Acute) Hyperlipidemia (Acute) Rectal bleeding (Acute) Procedures: Principal: EGD. Colonoscopy Other Procedures: CXR. EKG. Lumbar xray. Renal US. Bladder US Hospital Course: Patient is a 48 y/o male that presented to ED for complaints of rectal bleeding for 2 weeks. Patient has positive Stool OB. Patient H/H remained stable while inpatient. Noted to have elevated BUN and Cr which began to trend down, was seen and eval by renal. CBC showed elev eosinophils and monocytes and Hematology eval patient. Patient was followed by Dr Olsen in regards to rectal bleeding and colonoscopy and EGD performed today. Patient states noticing minor blood from rectum x 1 epsiode s/p procedure today. Currently denies rectal pain, abdominal pain, nausea/vomiting. Instructed to follow up with Dr Olsen for pathology results. - Home Medications Comprehensive Discharge Medication List: Ambulatory Orders Aspirin [ASA -] 81 mg PO DAILY 10/10/18 Glimepiride 4 mg PO DAILY 10/10/18 Krill Oil 10/10/18 Simvastatin 20 mg PO DAILY 10/10/18 Sitagliptin Phos/Metformin HCl [Janumet 50-500 mg Tablet] 1 each PO HS 10/10/18 Trulicity 10/10/18 <Michelle Key - Last Filed: 10/12/18 15:31> - Home Medications Comprehensive Discharge Medication List: Ambulatory Orders Aspirin [ASA -] 81 mg PO DAILY 10/10/18 Glimepiride 4 mg PO DAILY 10/10/18 Krill Oil 10/10/18 Simvastatin 20 mg PO DAILY 10/10/18 Sitagliptin Phos/Metformin HCl [Janumet 50-500 mg Tablet] 1 each PO HS 10/10/18 Trulicity 10/10/18 Atorvastatin Ca [Lipitor] 40 mg PO HS #30 tablet 10/12/18 Hydrocortisone Acetate [Anusol Hc Suppository -] 25 mg RC BID #60 supp.rect 08/20 <Melanie Treadwell - Last Filed: 10/13/18 08:48> Condition: Improved - Instructions Diet, Activity, Other Instructions: Patient instructed to follow up with PMD Dr Valladares in 3-4 days Patient instructed to follow up with Dr Olsen GI for biopsy result from EGD/ colonoscopy Patient instructed to follow up with Dr Pinto Nephrology due to elev BUN/Cr Patient instructed to follow up with Dr Gentile Hematology for eosinophilia follow diabetic diet instructed if experience rectal bleeding, rectal pain, abdominal pain to go to nearest ER Referrals: Jj Valladares MD [Primary Care Provider] - Muriel Fofana MD [Staff Physician] - Rohan Olsen DO [Staff Physician] - Bryan Pinto MD [Staff Physician] - Disposition: HOME
[2018-10-15 12:22] LABS: STRONGILOIDES AB-Ig-G Positive (Negative)
--- NOTE | 2018-10-15 16:38 | PATH ---
Surgical Pathology Report Patient Name: MIGNON FLORENTINO JR [facility]. Rec. #: [id number] /Age/Gender: 1970 (Age: 48) / M Account: [id number] Location: [address] [place] [address] Taken: 10/12/2018 Received: 10/12/2018 Reported: 10/15/2018 Physicians: Akshat Robison M.D. Specimen(s) Received BX PROXIMAL TRANSVERSE COLON POLYP Clinical History GI bleed Postoperative diagnosis: Normal upper endoscopy, colon polyp, hemorrhage Final Diagnosis PROXIMAL TRANSVERSE COLON POLYP, POLYPECTOMY: TUBULAR ADENOMA. Electronically Signed Marixa Desai M.D. Gross Description Received in formalin, labeled "polyp proximal transverse" is a colón, irregular portion of soft tissue measuring 0.4 cm. in greatest dimension. The specimen is submitted in toto in one cassette. /10/12/201810/12/2018
--- NOTE | 2018-10-15 18:53 | PATH ---
Surgical Pathology Report Patient Name: MIGNON FLORENTINO JR [facility]. Rec. #: [id number] /Age/Gender: 1970 (Age: 48) / M Account: [id number] Location: [address] [place] [address] Taken: 10/11/2018 Received: 10/12/2018 Reported: 10/15/2018 Physicians: Maxi Cooper M.D. Specimen(s) Received 2 GREEN TOP TUBES Clinical History Eosinophilia, monocytosis Final Diagnosis COMPREHENSIVE FLOW PANEL performed and interpreted at [facility], [place], [place] ([id number]) shows the following: INTERPRETATION: In the samples analyzed, there is no evidence of B or T-cell proliferative disorders, increased blasts or monocytic cells. See [facility] report ([id number]) for additional details. Electronically Signed Zully Olivo M.D. Gross Description Received are 2 green top tubes of blood which are sent to [facility]. /10/12/2018 saudi10/12/2018
== END 2018-10-12 15:42 | disposition home or self-care (01) | DRG 378 ==
LOC: JER 10:00 → JERBED 15:10 → J5S 17:09
PROVIDERS: ADMIT Family Medicine; ATTEND Family Medicine
PROC: 0DBL8ZX Excision of Transverse Colon, Via Natural or Artificial Opening Endoscopic, Diagnostic (ICD-10-PCS; 2018-10-12)
PROC: 0DJ08ZZ Inspection of Upper Intestinal Tract, Via Natural or Artificial Opening Endoscopic (ICD-10-PCS; principal; 2018-10-12 10:00)
DX: K62.5 Hemorrhage of anus and rectum (principal); N17.9 Acute kidney failure, unspecified; D62 Acute posthemorrhagic anemia; E78.00 Pure hypercholesterolemia, unspecified; N40.0 Benign prostatic hyperplasia without lower urinary tract symptoms; K59.00 Constipation, unspecified; D72.1 Eosinophilia; K64.8 Other hemorrhoids; D12.3 Benign neoplasm of transverse colon; M54.5 Low back pain; D72.821 Monocytosis (symptomatic); R19.7 Diarrhea, unspecified; R11.2 Nausea with vomiting, unspecified; K63.5 Polyp of colon; Z79.4 Long term (current) use of insulin
CPT/HCPCS: 36415; 71046-TC-FY; 72100-TC-FY; 74176-TC; 76775-TC; 76856-TC; 80053; 80061; 81003; 81015; 82272; 82570; 82962; 83036; 83605; 83721; 83735; 84100; 84153; 84156; 84300; 85025; 85027; 85610; 85651; 85730; 86038; 86140; 86431; 86682; 86850; 86900; 86901; 87389; 88300-TC; 88305-TC; 93005; 93010; 99284-25; J0131; J7030

== ENCOUNTER 2020-04-14 09:26 | Emergency (ER) | payer OTHER ==
[2020-04-14 09:44] VITALS: TEMP 98.1; BMI 33.0
[2020-04-14 10:23] LABS: BASO % 1.1 % (0-2.0); EOS % 7.2 % (0-4.5); HEMATOCRIT 28.1 % (35.4-49); HEMOGLOBIN 9.4 GM/dl (11.7-16.9); LYMPH % 22.7 % (8-40); MCHC 33.4 g/dl (32.0-35.9); MEAN CELL VOLUME 80.7 fl (80-96); MONO % 6.4 % (3.8-10.2); NEUT % 62.6 % (42.8-82.8); PLATELET COUNT 310 K/MM3 (134-434); RBC 3.48 M/mm3 (4.00-5.60); RDW 14.2 % (11.9-15.9); WHITE BLOOD COUNT 6.3 K/mm3 (4.0-10.8)
[2020-04-14 10:32] LABS: ALBUMIN 3.3 g/dl (3.4-5.0); BILIRUBIN,TOTAL 0.3 mg/dl (0.2-1); CALCIUM 8.6 mg/dl (8.5-10); CREATININE 2.8 mg/dl (0.55-1.3); MAGNESIUM 1.7 mg/dL (1.8-2.4); PHOSPHOROUS 4.8 mg/dl (2.5-4.9); POTASSIUM 4.9 mmol/L (3.5-5.1); TOT PROT 6.6 g/dl (6.4-8.2)
--- NOTE | 2020-04-14 10:59 | PDOC ---
History of Present Illness - General Chief Complaint: Revisit, Lab Variance Stated Complaint: SENT BY PMD FOR ELEVATED CREATININE Time Seen by Provider: 04/14/20 09:51 - History of Present Illness Initial Comments: 04/14/20 10:29 49 years old with exq-ldhdfmu-cbyjugnyw diabetes, hypertension high cholesterol enlarged prostate presents to the emergency department for abnormal labs. Patient had routine labs done a few days by his PCP Dr. Emanuel and was told to come to the emergency department because of kidney issues Patient complaining of body aches joint pain denies fever chills chest pain shortness of breath nausea vomiting diarrhea. Symptoms are mild to moderate persistent constant no exacerbating or alleviating factors. Past History - Medical History Allergies/Adverse Reactions: Allergies Allergy/AdvReac Type Severity Reaction Status Date / Time No Known Allergies Allergy Verified 04/14/20 09:28 Home Medications: Ambulatory Orders Amlodipine Besylate [Norvasc -] 10 mg PO DAILY 04/14/20 Insulin Degludec [Tresiba] 100 unit SQ DAILY 04/14/20 Labetalol HCl [Normodyne -] 200 mg PO BID 04/14/20 Simvastatin 20 mg PO HS 04/14/20 Sitagliptin Phosphate [Januvia] 50 mg PO HS 04/14/20 COPD: No Diabetes: Yes HTN: Yes Hypercholesterolemia: Yes Other medical history: kidney failure - Surgical History Appendectomy: Yes - Psycho-Social/Smoking History Smoking History: Current some day smoker Have you smoked in the past 12 months: Yes Number of Cigarettes Smoked Daily: 3 Cigars Per Day: 1 Information on smoking cessation initiated: Yes 'Breaking Loose' booklet given: 10/10/18 - Substance Abuse Hx (Audit-C & DAST Scrn) How often the patient has a drink containing alcohol: Monthly or less Number of drinks the patient has on a typical day: 1 or 2 Score: In Men: 4 or > Positive; In Women: 3 or > Positive: 1 Screen Result (Pos requires Nsg. Audit-10AR): Negative In the last yr the pt used illegal drug/Rx for NonMed reason: No Score: Yes response is considered Positive: 0 Screen Result (Positive result requires Nsg. DAST-10): Negative Review of Systems - Review of Systems Comments:: 04/14/20 10:29 ROS: A complete review of 10 out of 10 review of systems is taken and is negative apart from what is previously mentioned below and in the HPI. *Physical Exam - Vital Signs Last Vital Signs Temp Pulse Resp BP Pulse Ox 98.1 F 80 16 148/91 99 04/14/20 09:28 04/14/20 09:28 04/14/20 09:28 04/14/20 09:28 04/14/20 09:28 ED Treatment Course - LABORATORY CBC & Chemistry Diagram: 04/14/20 10:00 04/14/20 10:00 - ADDITIONAL ORDERS Additional order review: 04/14/20 10:00 RBC 3.48 L MCV 80.7 MCHC 33.4 RDW 14.2 D MPV 8.0 Neutrophils % 62.6 Lymphocytes % 22.7 Monocytes % 6.4 Eosinophils % 7.2 H D Basophils % 1.1 - RADIOLOGY Radiology Studies Ordered: Category Date Time Status CXRPORT [CHEST X-RAY PORTABLE*] [RAD] Stat Radiology 04/14/20 09:52 Ordered Medical Decision Making - Medical Decision Making 04/14/20 12Patient sent to the ED for elevated creatinine on labs from April 09 Creatinine was 3.8 at that time. Today's labs patient's creatinine is 2.8 which is closer to his baseline of 2.5 This was discussed at length with patient's primary care doctor Dr. Valladares, and with Dr. Billingsley. An appointment was made for tomorrow at 3 PM for nephrology follow-up and Dr. Valladares will follow-up with patient next week to recheck labs and provide additional care Advised patient to hydrate aggressively overnight Findings, need for follow-up and strict return instructions discussed with patient. Discharge - Discharge Information Problems reviewed: Yes Clinical Impression/Diagnosis: CKD (chronic kidney disease) Qualifiers: Chronic kidney disease stage: unspecified stage Qualified Code(s): N18.9 - Chronic kidney disease, unspecified Condition: Stable Disposition: HOME - Admission No - Follow up/Referral Referrals: Jj Valladares MD [Primary Care Provider] - Tiffani Abbott MD [Staff Physician] - - Patient Discharge Instructions Patient Printed Discharge Instructions: Chronic Renal Failure Additional Instructions: Drink plenty of fluids. Follow-up tomorrow with at 3 PM tomorrow afternoon. He is located at [address] The office number is [phone] Return to the ED for any severe worsening symptoms or for any concerns. Also follow-up with next week to review all your labs. - Post Discharge Activity
[2020-04-14 11:14] LABS: EPITHELIAL CELLS RARE /hpf
[2020-04-14] MEDS ORDERED: SODIUM CHLORIDE 0.9% 1000 ML INFUS.BAG IV ONE (11:48)
[2020-04-14 13:04] VITALS: BP 160/93; PULSE 74
--- NOTE | 2020-04-15 09:48 | EKG ---
Test Reason : Blood Pressure : / mmHG Vent. Rate : 073 BPM Atrial Rate : 073 BPM P-R Int : 172 ms QRS Dur : 086 ms QT Int : 380 ms P-R-T Axes : 000 047 038 degrees QTc Int : 418 ms NORMAL SINUS RHYTHM NONSPECIFIC ST ABNORMALITY ABNORMAL ECG WHEN COMPARED WITH ECG OF 18-FEB-2020 11:06, NON-SPECIFIC CHANGE IN ST SEGMENT IN LATERAL LEADS Confirmed by MD LINDA, EDGAR ([id number]) on 04/15/2020 9:48:16 AM Referred By: OSMAN CUELLAR Confirmed By:EDGAR MCKEON MD
== END 2020-04-14 13:05 | disposition home or self-care (01) ==
LOC: FER 09:26
DX: N18.9 Chronic kidney disease, unspecified (principal)
CPT/HCPCS: 36415; 71045-TC-FY; 80053; 81003; 81015; 82550; 82553; 83735; 84100; 84484; 85025; 85730; 86850; 86900; 86901; 87086; 93005; 99285-25

== ENCOUNTER 2021-08-23 15:49 | Inpatient (IN) | payer OTHER ==
[2021-08-23] MEDS ORDERED: ASPIRIN 81 MG CHEWABLE TABLETS PO ONE (17:31)
[2021-08-23] MEDS ORDERED: ASPIRIN 81 MG CHEWABLE TABLETS ONE (19:35)
[2021-08-23 20:34] LABS: EOS % 6.4 % (0-4.5); HEMATOCRIT 29.1 % (35.4-49); HEMOGLOBIN 9.6 GM/dL (11.7-16.9); LYMPH % 22.3 % (8-40); MCH 27.6 pg (25.7-33.7); MCHC 32.9 g/dl (32.0-35.9); MEAN CELL VOLUME 83.8 fl (80-96); MEAN PLT VOLUME 9.3 fl (7.5-11.1); MONO % 7.5 % (3.8-10.2); NEUT % 61.8 % (42.8-82.8); PLATELET COUNT 309 10^3/uL (134-434); RBC 3.47 M/mm3 (4.00-5.60); WHITE BLOOD COUNT 6.6 K/mm3 (4.0-10.0)
[2021-08-23 20:51] LABS: ALBUMIN 2.8 g/dl (3.4-5.0); BLOOD UREA NITROGEN 75.8 mg/dL (7-18); CALCIUM 7.2 mg/dL (8.5-10.1); MAGNESIUM 1.8 mg/dL (1.8-2.4)
[2021-08-23 20:55] LABS: CREATININE 5.9 mg/dL (0.55-1.3)
[2021-08-23 20:56] LABS: BILIRUBIN,TOTAL 0.3 mg/dL (0.2-1); TOT PROT 6.6 g/dl (6.4-8.2)
[2021-08-23 21:00] LABS: N-TERMINAL BNP 11432.6 pg/ml (5-125)
[2021-08-23] MEDS ORDERED: FUROSEMIDE 100 MG/10 ML INJECTABLE VIAL IVPB ONE (21:15)
[2021-08-23] MEDS ORDERED: FUROSEMIDE 40 MG/4 ML INJECTABLE VIAL ONE (22:43)
[2021-08-23] MEDS ORDERED: ACETAMINOPHEN 325 MG TABLET (FP) PO PRN (22:44)
[2021-08-24 03:02] LABS: INR 1.03 (0.83-1.09); PROTHROMBIN TIME (PATIENT) 12.1 SEC (9.7-13.0)
[2021-08-24 03:05] LABS: ACTIVATED PTT 28.9 SECONDS (25.2-36.5)
[2021-08-24 03:28] VITALS: BMI 34.0
[2021-08-24] MEDS ORDERED: FUROSEMIDE 40 MG/4 ML INJECTABLE VIAL IVPUSH ONE ×2 (06:00→10:44)
[2021-08-24] MEDS ORDERED: HEPARIN NA (PORCINE) 5,000 UNITS/ML 1ML VIAL SQ SCH (06:00)
[2021-08-24] MEDS: INSULIN SLIDING SCALE (NOVOLOG) 1 VIAL SQ SCH ×4 (06:22→21:18)
[2021-08-24 07:53] LABS: BASO % 2.2 % (0-2.0); EOS % 7.4 % (0-4.5); HEMATOCRIT 24.7 % (35.4-49); HEMOGLOBIN 8.4 GM/dL (11.7-16.9); LYMPH % 20.1 % (8-40); MCH 28.2 pg (25.7-33.7); MCHC 33.9 g/dl (32.0-35.9); MEAN CELL VOLUME 83.2 fl (80-96); MEAN PLT VOLUME 9.1 fl (7.5-11.1); MONO % 7.5 % (3.8-10.2); NEUT % 62.8 % (42.8-82.8); PLATELET COUNT 271 10^3/uL (134-434); RBC 2.97 M/mm3 (4.00-5.60); RDW 13.9 % (11.9-15.9); WHITE BLOOD COUNT 4.9 K/mm3 (4.0-10.0)
[2021-08-24 08:57] LABS: BLOOD UREA NITROGEN 71.4 mg/dL (7-18)
[2021-08-24 08:58] LABS: CALCIUM 7.1 mg/dL (8.5-10.1)
[2021-08-24] MEDS ORDERED: PT OWN MED DRAWER 7, Y5N ONE ×3 (09:57→16:20)
[2021-08-24] MEDS ORDERED: PANTOPRAZOLE SODIUM 40 MG VIAL IVPUSH SCH (10:00)
[2021-08-24] MEDS ORDERED: ASPIRIN 325 MG ENTERIC COATED TABLET (FP) PO SCH (10:00)
[2021-08-24] MEDS ORDERED: ATENOLOL 50 MG TABLET (FP) PO SCH (10:00)
[2021-08-24] MEDS: LABETALOL HCL 200 MG TABLET (FP) PO SCH ×2 (11:58→21:18)
[2021-08-24] MEDS: amLODIPine BESYLATE 10 MG TABLET (FP) PO SCH (11:59)
[2021-08-24] MEDS ORDERED: GLIMEPIRIDE 4 MG TABLET PO SCH (12:00)
[2021-08-24] MEDS ORDERED: IRON SUCROSE INJECTION 200 MG in SODIUM CHLORIDE 90 ML IVPB ONE (13:28)
[2021-08-24] MEDS ORDERED: MAG HYDROX/AL HYDROX/SIMETH 30 ML UNIT-DOSE CUP PO PRN (13:32)
[2021-08-24 13:58] LABS: CHOLESTEROL 236 mg/dL (50-200); HDL CHOLESTEROL 39 mg/dL (40-60); LDL CHOLESTEROL (ONLY SJRH) 153 mg/dL (5-100); TRIGLYCERIDES 229 mg/dL (0-150)
[2021-08-24] MEDS: FUROSEMIDE 40 MG/4 ML INJECTABLE VIAL IVPUSH SCH (15:06)
[2021-08-24] MEDS: TAMSULOSIN HCL 0.4 MG CAP PO SCH (21:17)
[2021-08-25] MEDS: FUROSEMIDE 40 MG/4 ML INJECTABLE VIAL IVPUSH SCH ×2 (07:26→16:09)
[2021-08-25] MEDS: INSULIN (LEVEMIR) 100 UNITS/ML UNITS SQ SCH (07:26)
[2021-08-25] MEDS: INSULIN SLIDING SCALE (NOVOLOG) 1 VIAL SQ SCH ×4 (07:27→22:11)
[2021-08-25] MEDS: amLODIPine BESYLATE 10 MG TABLET (FP) PO SCH (10:50)
[2021-08-25] MEDS: PANTOPRAZOLE 20 MG TABLET PO SCH (10:50)
[2021-08-25] MEDS: LABETALOL HCL 200 MG TABLET (FP) PO SCH ×2 (10:50→21:27)
[2021-08-25 12:20] LABS: ANION GAP 8 MMOL/L (8-16); CALCIUM 6.9 mg/dL (8.5-10.1); CHLORIDE 113 mmol/L (98-107); CO2 21 mmol/L (21-32); CREATININE 6.3 mg/dL (0.55-1.3); GLUCOSE,RANDOM 173 mg/dL (74-106); SODIUM 142 mmol/L (136-145)
[2021-08-25] MEDS ORDERED: CALCIUM GLUCONATE 10% - 1,000 MG/10 ML VIAL IVPB ONE (12:44)
[2021-08-25] MEDS ORDERED: SODIUM ZIRCONIUM CYCLOSILICATE (LOKELMA) 5 GM PACKET PO SCH (13:30)
[2021-08-25] MEDS ORDERED: PT OWN MED DRAWER 7, Y5N ONE (15:31)
[2021-08-25 15:50] LABS: PHOSPHOROUS 5.5 mg/dL (2.5-4.9)
[2021-08-25] MEDS: CALCIUM 500MG/VIT-D 200 UNITS COMBO TABLET (FP) PO SCH (16:09)
[2021-08-25] MEDS: CALCIUM ACETATE 667 MG CAPSULE (FP) PO SCH (17:11)
[2021-08-25] MEDS: TAMSULOSIN HCL 0.4 MG CAP PO SCH (21:27)
[2021-08-25] MEDS: ATORVASTATIN CA 80 MG TABLET (FP) PO SCH (21:27)
[2021-08-25] MEDS: SODIUM BICARBONATE 325 MG TABLET PO SCH (22:14)
[2021-08-25] MEDS ORDERED: SODIUM CHLORIDE NASAL SPRAY 44 ML BOTTLE NS PRN (22:49)
[2021-08-26] MEDS: FUROSEMIDE 40 MG/4 ML INJECTABLE VIAL IVPUSH SCH (05:42)
[2021-08-26] MEDS: INSULIN (LEVEMIR) 100 UNITS/ML UNITS SQ SCH (06:25)
[2021-08-26] MEDS ORDERED: PT OWN MED DRAWER 7, Y5N ONE ×3 (06:25→21:29)
[2021-08-26] MEDS: INSULIN SLIDING SCALE (NOVOLOG) 1 VIAL SQ SCH ×4 (06:25→21:43)
[2021-08-26 07:09] LABS: HEMATOCRIT 24.2 % (35.4-49); HEMOGLOBIN 8.2 GM/dL (11.7-16.9); MCH 27.8 pg (25.7-33.7); MCHC 33.9 g/dl (32.0-35.9); MEAN CELL VOLUME 82.1 fl (80-96); MEAN PLT VOLUME 8.5 fl (7.5-11.1); PLATELET COUNT 252 10^3/uL (134-434); RBC 2.95 M/mm3 (4.00-5.60); WHITE BLOOD COUNT 5.4 K/mm3 (4.0-10.0)
[2021-08-26 07:41] LABS: ALBUMIN 2.5 g/dl (3.4-5.0); BILIRUBIN,TOTAL 0.3 mg/dL (0.2-1); BLOOD UREA NITROGEN 76.2 mg/dL (7-18); CALCIUM 7.1 mg/dL (8.5-10.1); CREATININE 6.4 mg/dL (0.55-1.3); MAGNESIUM 1.5 mg/dL (1.8-2.4); PHOSPHOROUS 6.1 mg/dL (2.5-4.9)
[2021-08-26] MEDS: CALCIUM ACETATE 667 MG CAPSULE (FP) PO SCH ×3 (08:39→17:17)
[2021-08-26] MEDS: amLODIPine BESYLATE 10 MG TABLET (FP) PO SCH (09:17)
[2021-08-26] MEDS: CALCIUM 500MG/VIT-D 200 UNITS COMBO TABLET (FP) PO SCH (09:17)
[2021-08-26] MEDS: LABETALOL HCL 200 MG TABLET (FP) PO SCH ×2 (09:17→21:44)
[2021-08-26] MEDS: PANTOPRAZOLE 20 MG TABLET PO SCH (09:17)
[2021-08-26] MEDS: SODIUM ZIRCONIUM CYCLOSILICATE (LOKELMA) 10 GM PACKET PO SCH (09:18)
[2021-08-26] MEDS: SODIUM BICARBONATE 325 MG TABLET PO SCH ×2 (09:18→21:45)
[2021-08-26] MEDS ORDERED: MAGNESIUM OXIDE 400 MG TABLET (FP) PO ONE (10:00)
[2021-08-26] MEDS: TAMSULOSIN HCL 0.4 MG CAP PO SCH (21:44)
[2021-08-26] MEDS: ATORVASTATIN CA 80 MG TABLET (FP) PO SCH (21:44)
[2021-08-26] MEDS ORDERED: MELATONIN 1 MG TABLET PO ONE (22:08)
[2021-08-27] MEDS: INSULIN SLIDING SCALE (NOVOLOG) 1 VIAL SQ SCH ×4 (06:12→21:37)
[2021-08-27] MEDS: INSULIN (LEVEMIR) 100 UNITS/ML UNITS SQ SCH (06:12)
[2021-08-27 08:03] LABS: HEMATOCRIT 22.4 % (35.4-49); HEMOGLOBIN 7.6 GM/dL (11.7-16.9); MCHC 33.9 g/dl (32.0-35.9); MEAN CELL VOLUME 82.6 fl (80-96); PLATELET COUNT 217 10^3/uL (134-434); RBC 2.71 M/mm3 (4.00-5.60); WHITE BLOOD COUNT 5.5 K/mm3 (4.0-10.0)
[2021-08-27 09:15] LABS: ALBUMIN 2.4 g/dl (3.4-5.0); ALK PHOS 89 U/L (45-117); ANION GAP 7 MMOL/L (8-16); BILIRUBIN,TOTAL 0.2 mg/dL (0.2-1); BLOOD UREA NITROGEN 81.8 mg/dL (7-18); CALCIUM 6.9 mg/dL (8.5-10.1); CHLORIDE 111 mmol/L (98-107); CO2 22 mmol/L (21-32); CREATININE 6.9 mg/dL (0.55-1.3); GLUCOSE,RANDOM 163 mg/dL (74-106); SGOT/AST 6 U/L (15-37); SGPT/ALT 15 U/L (13-61); SODIUM 139 mmol/L (136-145); TOT PROT 5.8 g/dl (6.4-8.2)
[2021-08-27] MEDS ORDERED: REGADENOSON 0.4 MG/5 ML PRE-FILLED SYRINGE IVPUSH ONE ×2 (09:49→10:30)
[2021-08-27] MEDS ORDERED: PT OWN MED DRAWER 7, Y5N ONE ×2 (10:39→21:27)
[2021-08-27] MEDS: SODIUM ZIRCONIUM CYCLOSILICATE (LOKELMA) 10 GM PACKET PO SCH (10:58)
[2021-08-27] MEDS: amLODIPine BESYLATE 10 MG TABLET (FP) PO SCH (10:58)
[2021-08-27] MEDS: PANTOPRAZOLE 20 MG TABLET PO SCH (10:58)
[2021-08-27] MEDS: CALCIUM ACETATE 667 MG CAPSULE (FP) PO SCH ×3 (10:58→16:46)
[2021-08-27] MEDS: LABETALOL HCL 200 MG TABLET (FP) PO SCH ×2 (10:58→21:37)
[2021-08-27] MEDS: CALCIUM 500MG/VIT-D 200 UNITS COMBO TABLET (FP) PO SCH (10:58)
[2021-08-27] MEDS: SODIUM BICARBONATE 325 MG TABLET PO SCH ×2 (10:59→21:37)
[2021-08-27] MEDS: FUROSEMIDE 40 MG/4 ML INJECTABLE VIAL IVPUSH SCH (10:59)
[2021-08-27] MEDS ORDERED: FUROSEMIDE 40 MG/4 ML INJECTABLE VIAL IVPUSH ONE (11:20)
[2021-08-27] MEDS: FERROUS SO4 325 MG TABLET (FP) PO SCH (16:46)
[2021-08-27] MEDS ORDERED: EPOETIN ALFA-EPBX 10,000 UNIT/ML VIAL SQ ONE (16:56)
[2021-08-27] MEDS ORDERED: IRON SUCROSE INJECTION 100 MG in SODIUM CHLORIDE 95 ML IVPB ONE (17:00)
[2021-08-27 20:13] LABS: MAGNESIUM 1.6 mg/dL (1.8-2.4)
[2021-08-27 20:13] LABS: MAGNESIUM 1.6 mg/dL (1.8-2.4)
[2021-08-27] MEDS: TAMSULOSIN HCL 0.4 MG CAP PO SCH (21:36)
[2021-08-27] MEDS: ATORVASTATIN CA 80 MG TABLET (FP) PO SCH (21:36)
[2021-08-28] MEDS: INSULIN SLIDING SCALE (NOVOLOG) 1 VIAL SQ SCH ×4 (06:55→22:02)
[2021-08-28] MEDS: INSULIN (LEVEMIR) 100 UNITS/ML UNITS SQ SCH (06:55)
[2021-08-28] MEDS: FERROUS SO4 325 MG TABLET (FP) PO SCH ×2 (08:48→17:02)
[2021-08-28] MEDS: CALCIUM ACETATE 667 MG CAPSULE (FP) PO SCH ×3 (08:48→17:01)
[2021-08-28] MEDS: FUROSEMIDE 40 MG/4 ML INJECTABLE VIAL IVPUSH SCH (10:31)
[2021-08-28] MEDS: SODIUM BICARBONATE 325 MG TABLET PO SCH ×2 (10:32→22:00)
[2021-08-28] MEDS: LABETALOL HCL 200 MG TABLET (FP) PO SCH ×2 (10:32→22:00)
[2021-08-28] MEDS: amLODIPine BESYLATE 10 MG TABLET (FP) PO SCH (10:32)
[2021-08-28] MEDS: CALCIUM 500MG/VIT-D 200 UNITS COMBO TABLET (FP) PO SCH (10:32)
[2021-08-28] MEDS: PANTOPRAZOLE 20 MG TABLET PO SCH (10:32)
[2021-08-28 10:44] LABS: ALBUMIN 2.3 g/dl (3.4-5.0); BLOOD UREA NITROGEN 80.8 mg/dL (7-18); MAGNESIUM 1.6 mg/dL (1.8-2.4)
[2021-08-28 10:45] LABS: CREATININE 7.1 mg/dL (0.55-1.3)
[2021-08-28 10:47] LABS: BILIRUBIN,TOTAL 0.4 mg/dL (0.2-1)
[2021-08-28 10:49] LABS: BASO % 1.1 % (0-2.0); EOS % 2.2 % (0-4.5); HEMATOCRIT 22.8 % (35.4-49); HEMOGLOBIN 7.5 GM/dL (11.7-16.9); LYMPH % 14.8 % (8-40); MCH 27.3 pg (25.7-33.7); MEAN CELL VOLUME 82.7 fl (80-96); MEAN PLT VOLUME 9.3 fl (7.5-11.1); MONO % 7.3 % (3.8-10.2); NEUT % 74.6 % (42.8-82.8); PLATELET COUNT 211 10^3/uL (134-434); RBC 2.75 M/mm3 (4.00-5.60); RDW 13.8 % (11.9-15.9); WHITE BLOOD COUNT 6.1 K/mm3 (4.0-10.0)
[2021-08-28] MEDS: SODIUM ZIRCONIUM CYCLOSILICATE (LOKELMA) 10 GM PACKET PO SCH (11:16)
[2021-08-28] MEDS ORDERED: ENOXAPARIN NA (PORCINE) 40 MG/0.4 ML DISP.SYRIN SQ SCH (17:15)
[2021-08-28 18:07] LABS: HEMOGLOBIN 7.3 GM/dL (11.7-16.9); MCH 27.3 pg (25.7-33.7); MCHC 33.3 g/dl (32.0-35.9); MEAN CELL VOLUME 81.9 fl (80-96); MEAN PLT VOLUME 8.9 fl (7.5-11.1); PLATELET COUNT 205 10^3/uL (134-434); RBC 2.69 M/mm3 (4.00-5.60); RDW 13.7 % (11.9-15.9); WHITE BLOOD COUNT 5.4 K/mm3 (4.0-10.0)
[2021-08-28 18:09] LABS: ARTERIAL BLD GAS O2 SATURATION 93.7 % (95-98); ARTERIAL BLOOD GAS BASE EXCESS -4.6 mmol/L (-2-2); ARTERIAL BLOOD GAS PO2 67.5 mmHg (80-100); ARTERIAL BLOOD GAS pH 7.398 (7.350-7.450)
[2021-08-28 18:19] LABS: ALLENS TEST POSITIVE
[2021-08-28] MEDS ORDERED: PT OWN MED DRAWER 7, Y5N ONE (21:06)
[2021-08-28] MEDS: HEPARIN NA (PORCINE) 5,000 UNITS/ML 1ML VIAL SQ SCH (21:59)
[2021-08-28] MEDS: TAMSULOSIN HCL 0.4 MG CAP PO SCH (22:00)
[2021-08-28] MEDS: ATORVASTATIN CA 80 MG TABLET (FP) PO SCH (22:00)
[2021-08-29] MEDS: INSULIN (LEVEMIR) 100 UNITS/ML UNITS SQ SCH (06:37)
[2021-08-29] MEDS: INSULIN SLIDING SCALE (NOVOLOG) 1 VIAL SQ SCH ×4 (06:38→21:13)
[2021-08-29] MEDS: FERROUS SO4 325 MG TABLET (FP) PO SCH ×2 (08:58→17:19)
[2021-08-29] MEDS: CALCIUM ACETATE 667 MG CAPSULE (FP) PO SCH ×3 (08:58→17:19)
[2021-08-29] MEDS: FUROSEMIDE 40 MG/4 ML INJECTABLE VIAL IVPUSH SCH (10:04)
[2021-08-29] MEDS: amLODIPine BESYLATE 10 MG TABLET (FP) PO SCH (10:05)
[2021-08-29] MEDS: CALCIUM 500MG/VIT-D 200 UNITS COMBO TABLET (FP) PO SCH (10:05)
[2021-08-29] MEDS: SODIUM BICARBONATE 325 MG TABLET PO SCH ×2 (10:05→21:13)
[2021-08-29] MEDS: HEPARIN NA (PORCINE) 5,000 UNITS/ML 1ML VIAL SQ SCH ×2 (10:05→21:11)
[2021-08-29] MEDS: PANTOPRAZOLE 20 MG TABLET PO SCH (10:05)
[2021-08-29] MEDS: LABETALOL HCL 200 MG TABLET (FP) PO SCH ×2 (10:05→21:22)
[2021-08-29 10:15] LABS: CHLORIDE 108 mmol/L (98-107); SODIUM 139 mmol/L (136-145)
[2021-08-29 10:18] LABS: CALCIUM 7.2 mg/dL (8.5-10.1)
[2021-08-29 10:19] LABS: ANION GAP 10 MMOL/L (8-16); BLOOD UREA NITROGEN 86.2 mg/dL (7-18); CO2 21 mmol/L (21-32); GLUCOSE,RANDOM 102 mg/dL (74-106)
[2021-08-29 10:23] LABS: CREATININE 7.5 mg/dL (0.55-1.3)
[2021-08-29] MEDS: SODIUM ZIRCONIUM CYCLOSILICATE (LOKELMA) 10 GM PACKET PO SCH (11:18)
[2021-08-29] MEDS ORDERED: IRON SUCROSE INJECTION 100 MG in SODIUM CHLORIDE 95 ML IVPB ONE (12:00)
[2021-08-29] MEDS ORDERED: PT OWN MED DRAWER 7, Y5N ONE ×2 (13:35→21:02)
[2021-08-29 14:37] LABS: HIV INTERPRETATION NEGATIVE (NEGATIVE)
[2021-08-29] MEDS: ATORVASTATIN CA 80 MG TABLET (FP) PO SCH (21:11)
[2021-08-29] MEDS: TAMSULOSIN HCL 0.4 MG CAP PO SCH (21:11)
[2021-08-30] MEDS: INSULIN (LEVEMIR) 100 UNITS/ML UNITS SQ SCH (06:21)
[2021-08-30] MEDS: INSULIN SLIDING SCALE (NOVOLOG) 1 VIAL SQ SCH ×4 (06:21→21:17)
[2021-08-30 08:10] LABS: BASO % 0.7 % (0-2.0); EOS % 6.6 % (0-4.5); HEMATOCRIT 20.5 % (35.4-49); LYMPH % 24.1 % (8-40); MCH 28.1 pg (25.7-33.7); MCHC 33.8 g/dl (32.0-35.9); MEAN CELL VOLUME 83.1 fl (80-96); MEAN PLT VOLUME 10.1 fl (7.5-11.1); MONO % 12.6 % (3.8-10.2); PLATELET COUNT 197 10^3/uL (134-434); RBC 2.46 M/mm3 (4.00-5.60); RDW 13.5 % (11.9-15.9); WHITE BLOOD COUNT 4.8 K/mm3 (4.0-10.0)
[2021-08-30] MEDS: FERROUS SO4 325 MG TABLET (FP) PO SCH ×2 (08:24→17:35)
[2021-08-30] MEDS: CALCIUM ACETATE 667 MG CAPSULE (FP) PO SCH ×3 (08:24→17:35)
[2021-08-30 08:31] LABS: HEMOGLOBIN 6.9 GM/dL (11.7-16.9)
[2021-08-30 08:37] LABS: CHLORIDE 108 mmol/L (98-107); SODIUM 139 mmol/L (136-145)
[2021-08-30 08:52] LABS: CALCIUM 7.4 mg/dL (8.5-10.1)
[2021-08-30 08:53] LABS: ANION GAP 9 MMOL/L (8-16); BLOOD UREA NITROGEN 95.2 mg/dL (7-18); CO2 22 mmol/L (21-32); GLUCOSE,RANDOM 180 mg/dL (74-106); MAGNESIUM 1.9 mg/dL (1.8-2.4)
[2021-08-30 08:56] LABS: PHOSPHOROUS 6.3 mg/dL (2.5-4.9)
[2021-08-30 09:01] LABS: CREATININE 7.5 mg/dL (0.55-1.3)
[2021-08-30] MEDS: HEPARIN NA (PORCINE) 5,000 UNITS/ML 1ML VIAL SQ SCH ×2 (10:19→21:07)
[2021-08-30] MEDS: CALCIUM 500MG/VIT-D 200 UNITS COMBO TABLET (FP) PO SCH (10:25)
[2021-08-30] MEDS: PANTOPRAZOLE 20 MG TABLET PO SCH (10:25)
[2021-08-30] MEDS: SODIUM ZIRCONIUM CYCLOSILICATE (LOKELMA) 10 GM PACKET PO SCH (10:25)
[2021-08-30] MEDS: amLODIPine BESYLATE 10 MG TABLET (FP) PO SCH (10:25)
[2021-08-30] MEDS: LABETALOL HCL 200 MG TABLET (FP) PO SCH ×2 (10:25→21:07)
[2021-08-30] MEDS: SODIUM BICARBONATE 325 MG TABLET PO SCH ×2 (10:25→21:08)
[2021-08-30] MEDS ORDERED: FUROSEMIDE 40 MG/4 ML INJECTABLE VIAL IVPUSH ONE (10:30)
[2021-08-30] MEDS ORDERED: PT OWN MED DRAWER 7, Y5N ONE ×2 (10:35→21:00)
[2021-08-30] MEDS: FUROSEMIDE 40 MG/4 ML INJECTABLE VIAL IVPUSH SCH (11:14)
[2021-08-30] MEDS ORDERED: SODIUM CHLORIDE 250 ML IV PRN (11:31)
[2021-08-30 11:37] LABS: RETICULOCYTES 1.46 % (0.5-1.5)
[2021-08-30 19:44] LABS: EOS % 6.5 % (0-4.5); HEMATOCRIT 24.4 % (35.4-49); LYMPH % 21.3 % (8-40); MCH 27.2 pg (25.7-33.7); MCHC 32.8 g/dl (32.0-35.9); MEAN PLT VOLUME 9.2 fl (7.5-11.1); MONO % 11.2 % (3.8-10.2); PLATELET COUNT 210 10^3/uL (134-434); RBC 2.94 M/mm3 (4.00-5.60); RDW 13.8 % (11.9-15.9); WHITE BLOOD COUNT 4.8 K/mm3 (4.0-10.0)
[2021-08-30] MEDS: ATORVASTATIN CA 80 MG TABLET (FP) PO SCH (21:07)
[2021-08-30] MEDS: TAMSULOSIN HCL 0.4 MG CAP PO SCH (21:08)
[2021-08-31] MEDS: INSULIN SLIDING SCALE (NOVOLOG) 1 VIAL SQ SCH ×4 (06:20→23:14)
[2021-08-31] MEDS: INSULIN (LEVEMIR) 100 UNITS/ML UNITS SQ SCH (06:20)
[2021-08-31] MEDS: amLODIPine BESYLATE 10 MG TABLET (FP) PO SCH ×2 (08:54→10:22)
[2021-08-31] MEDS: LABETALOL HCL 200 MG TABLET (FP) PO SCH ×3 (08:54→23:13)
[2021-08-31] MEDS: FERROUS SO4 325 MG TABLET (FP) PO SCH ×2 (08:55→16:36)
[2021-08-31] MEDS: CALCIUM ACETATE 667 MG CAPSULE (FP) PO SCH ×3 (08:55→16:36)
[2021-08-31] MEDS: PANTOPRAZOLE 20 MG TABLET PO SCH ×2 (08:55→10:23)
[2021-08-31] MEDS ORDERED: REGADENOSON 0.4 MG/5 ML PRE-FILLED SYRINGE IVPUSH ONE ×2 (09:19→09:45)
[2021-08-31] MEDS: HEPARIN NA (PORCINE) 5,000 UNITS/ML 1ML VIAL SQ SCH ×2 (10:20→23:13)
[2021-08-31] MEDS: SODIUM ZIRCONIUM CYCLOSILICATE (LOKELMA) 10 GM PACKET PO SCH (10:21)
[2021-08-31] MEDS: CALCIUM 500MG/VIT-D 200 UNITS COMBO TABLET (FP) PO SCH (10:22)
[2021-08-31] MEDS ORDERED: EPOETIN ALFA-EPBX 10,000 UNIT/ML VIAL IVPUSH ONE (11:31)
[2021-08-31] MEDS ORDERED: ONDANSETRON 4 MG/2 ML VIAL IVPUSH PRN ×2 (16:14→18:32)
[2021-08-31] MEDS ORDERED: SODIUM CHLORIDE 1,000 ML IV SCH (16:15)
[2021-08-31] MEDS ORDERED: LIDOCAINE HCL 1%, 10 MG/ML (20ML VIAL) ONE (16:37)
[2021-08-31] MEDS ORDERED: HEPARIN NA (PORCINE) 5,000 UNITS/ML 1ML VIAL ONE (16:37)
[2021-08-31] MEDS ORDERED: MIDAZOLAM HCL 2 MG/2 ML SINGLE DOSE VIAL ONE (17:15)
[2021-08-31] MEDS ORDERED: PROPOFOL 20 ML ONE ×2 (17:36)
[2021-08-31] MEDS ORDERED: ceFAZolin SODIUM 1 GM VIAL IVPB ONE (17:45)
[2021-08-31] MEDS ORDERED: LIDOCAINE HCL 1%, 10 MG/ML (20ML VIAL) NR ONE (17:45)
[2021-08-31] MEDS ORDERED: MAG HYDROX/AL HYDROX/SIMETH 30 ML UNIT-DOSE CUP PO PRN (18:32)
[2021-08-31] MEDS ORDERED: ACETAMINOPHEN 325 MG TABLET (FP) PO PRN (18:32)
[2021-08-31] MEDS ORDERED: FUROSEMIDE 40 MG/4 ML INJECTABLE VIAL IVPUSH ONE (18:32)
[2021-08-31] MEDS ORDERED: SODIUM CHLORIDE NASAL SPRAY 44 ML BOTTLE NS PRN (18:32)
[2021-08-31] MEDS: ATORVASTATIN CA 80 MG TABLET (FP) PO SCH (23:13)
[2021-08-31] MEDS: TAMSULOSIN HCL 0.4 MG CAP PO SCH (23:13)
[2021-08-31] MEDS: SODIUM CHLORIDE 1,000 ML IV SCH (23:22)
[2021-09-01] MEDS: INSULIN SLIDING SCALE (NOVOLOG) 1 VIAL SQ SCH ×4 (06:01→21:47)
[2021-09-01] MEDS: INSULIN (LEVEMIR) 100 UNITS/ML UNITS SQ SCH (07:35)
[2021-09-01] MEDS ORDERED: EPOETIN ALFA-EPBX 10,000 UNIT/ML VIAL IVPUSH ONE ×2 (11:31→14:15)
[2021-09-01 12:10] LABS: BASO % 1.2 % (0-2.0); EOS % 7.3 % (0-4.5); HEMATOCRIT 24.2 % (35.4-49); HEMOGLOBIN 8.1 GM/dL (11.7-16.9); LYMPH % 20.6 % (8-40); MCH 28.3 pg (25.7-33.7); MCHC 33.5 g/dl (32.0-35.9); MEAN CELL VOLUME 84.6 fl (80-96); MEAN PLT VOLUME 9.5 fl (7.5-11.1); MONO % 8.3 % (3.8-10.2); NEUT % 62.6 % (42.8-82.8); PLATELET COUNT 231 10^3/uL (134-434); RBC 2.87 M/mm3 (4.00-5.60); RDW 13.8 % (11.9-15.9); WHITE BLOOD COUNT 4.8 K/mm3 (4.0-10.0)
[2021-09-01 12:36] LABS: CALCIUM 7.6 mg/dL (8.5-10.1)
[2021-09-01 12:37] LABS: BLOOD UREA NITROGEN 79.3 mg/dL (7-18)
[2021-09-01 12:40] LABS: CREATININE 6.7 mg/dL (0.55-1.3)
[2021-09-01] MEDS ORDERED: SODIUM CHLORIDE 250 ML IV PRN (13:42)
[2021-09-01] MEDS: CALCIUM ACETATE 667 MG CAPSULE (FP) PO SCH ×2 (15:26→17:27)
[2021-09-01] MEDS: FERROUS SO4 325 MG TABLET (FP) PO SCH ×2 (15:26→17:26)
[2021-09-01] MEDS: HEPARIN NA (PORCINE) 5,000 UNITS/ML 1ML VIAL SQ SCH ×2 (15:26→21:56)
[2021-09-01] MEDS: LABETALOL HCL 200 MG TABLET (FP) PO SCH ×2 (17:00→21:56)
[2021-09-01] MEDS ORDERED: PT OWN MED DRAWER 7, Y5N ONE (17:05)
[2021-09-01] MEDS: CALCIUM 500MG/VIT-D 200 UNITS COMBO TABLET (FP) PO SCH (17:26)
[2021-09-01] MEDS: PANTOPRAZOLE 20 MG TABLET PO SCH (17:26)
[2021-09-01] MEDS: SODIUM ZIRCONIUM CYCLOSILICATE (LOKELMA) 10 GM PACKET PO SCH (17:27)
[2021-09-01] MEDS: amLODIPine BESYLATE 10 MG TABLET (FP) PO SCH (17:27)
[2021-09-01] MEDS: SODIUM CHLORIDE 1,000 ML IV SCH (21:55)
[2021-09-01] MEDS: ATORVASTATIN CA 80 MG TABLET (FP) PO SCH (21:55)
[2021-09-01] MEDS: TAMSULOSIN HCL 0.4 MG CAP PO SCH (21:55)
[2021-09-02] MEDS: INSULIN SLIDING SCALE (NOVOLOG) 1 VIAL SQ SCH ×4 (06:17→21:39)
[2021-09-02] MEDS: INSULIN (LEVEMIR) 100 UNITS/ML UNITS SQ SCH (07:38)
[2021-09-02] MEDS ORDERED: PT OWN MED DRAWER 7, Y5N ONE (09:13)
[2021-09-02] MEDS: FERROUS SO4 325 MG TABLET (FP) PO SCH ×2 (09:16→16:39)
[2021-09-02] MEDS: CALCIUM ACETATE 667 MG CAPSULE (FP) PO SCH ×3 (09:16→16:39)
[2021-09-02] MEDS: PANTOPRAZOLE 20 MG TABLET PO SCH (09:16)
[2021-09-02] MEDS: LABETALOL HCL 200 MG TABLET (FP) PO SCH ×2 (09:16→21:39)
[2021-09-02] MEDS: HEPARIN NA (PORCINE) 5,000 UNITS/ML 1ML VIAL SQ SCH ×2 (09:16→21:38)
[2021-09-02] MEDS: amLODIPine BESYLATE 10 MG TABLET (FP) PO SCH (09:17)
[2021-09-02] MEDS: CALCIUM 500MG/VIT-D 200 UNITS COMBO TABLET (FP) PO SCH (09:17)
[2021-09-02] MEDS: SODIUM ZIRCONIUM CYCLOSILICATE (LOKELMA) 10 GM PACKET PO SCH (09:19)
[2021-09-02] MEDS ORDERED: SODIUM CHLORIDE 250 ML IV PRN (10:47)
[2021-09-02] MEDS: FUROSEMIDE 40 MG/4 ML INJECTABLE VIAL IVPUSH ONE ×2 (12:07→12:36)
[2021-09-02 12:22] LABS: BASO % 2.1 % (0-2.0); EOS % 6.1 % (0-4.5); HEMATOCRIT 24.8 % (35.4-49); HEMOGLOBIN 8.2 GM/dL (11.7-16.9); LYMPH % 23.6 % (8-40); MCHC 33.3 g/dl (32.0-35.9); MEAN CELL VOLUME 84.2 fl (80-96); MEAN PLT VOLUME 9.1 fl (7.5-11.1); MONO % 9.9 % (3.8-10.2); NEUT % 58.3 % (42.8-82.8); PLATELET COUNT 226 10^3/uL (134-434); RBC 2.94 M/mm3 (4.00-5.60); RDW 13.7 % (11.9-15.9); WHITE BLOOD COUNT 5.1 K/mm3 (4.0-10.0)
[2021-09-02 12:47] LABS: CALCIUM 7.7 mg/dL (8.5-10.1)
[2021-09-02 12:51] LABS: CREATININE 5.3 mg/dL (0.55-1.3)
[2021-09-02 12:55] LABS: BLOOD UREA NITROGEN 53.2 mg/dL (7-18)
[2021-09-02] MEDS: SODIUM CHLORIDE 1,000 ML IV SCH (19:36)
[2021-09-02] MEDS: ATORVASTATIN CA 80 MG TABLET (FP) PO SCH (21:39)
[2021-09-02] MEDS: TAMSULOSIN HCL 0.4 MG CAP PO SCH (21:39)
[2021-09-03] MEDS: INSULIN SLIDING SCALE (NOVOLOG) 1 VIAL SQ SCH ×3 (06:44→17:22)
[2021-09-03] MEDS: INSULIN (LEVEMIR) 100 UNITS/ML UNITS SQ SCH (06:45)
[2021-09-03] MEDS: CALCIUM ACETATE 667 MG CAPSULE (FP) PO SCH ×2 (09:11→12:44)
[2021-09-03] MEDS: PANTOPRAZOLE 20 MG TABLET PO SCH (09:11)
[2021-09-03] MEDS: CALCIUM 500MG/VIT-D 200 UNITS COMBO TABLET (FP) PO SCH (09:11)
[2021-09-03] MEDS: FERROUS SO4 325 MG TABLET (FP) PO SCH (09:12)
[2021-09-03] MEDS: HEPARIN NA (PORCINE) 5,000 UNITS/ML 1ML VIAL SQ SCH (09:12)
[2021-09-03] MEDS ORDERED: EPOETIN ALFA-EPBX 10,000 UNIT/ML VIAL SQ ONE (10:30)
[2021-09-03] MEDS ORDERED: HEPARIN NA (PORCINE) 5,000 UNITS/ML 1ML VIAL IVPUSH ONE (10:30)
[2021-09-03] MEDS ORDERED: IRON SUCROSE INJECTION 100 MG in SODIUM CHLORIDE 95 ML IVPB ONE (10:47)
[2021-09-03 12:37] LABS: HEMATOCRIT 24.2 % (35.4-49); HEMOGLOBIN 7.9 GM/dL (11.7-16.9); MCH 27.1 pg (25.7-33.7); MCHC 32.7 g/dl (32.0-35.9); MEAN CELL VOLUME 83.1 fl (80-96); MEAN PLT VOLUME 9.5 fl (7.5-11.1); PLATELET COUNT 230 10^3/uL (134-434); RBC 2.92 M/mm3 (4.00-5.60); RDW 13.7 % (11.9-15.9); WHITE BLOOD COUNT 5.7 K/mm3 (4.0-10.0)
[2021-09-03 13:08] LABS: CALCIUM 7.6 mg/dL (8.5-10.1)
[2021-09-03 13:09] LABS: BLOOD UREA NITROGEN 49.4 mg/dL (7-18)
[2021-09-03 13:12] LABS: CREATININE 5.2 mg/dL (0.55-1.3)
[2021-09-03 13:39] VITALS: BP 152/72; PULSE 70
[2021-09-03] MEDS: amLODIPine BESYLATE 10 MG TABLET (FP) PO SCH (14:42)
[2021-09-03] MEDS: LABETALOL HCL 200 MG TABLET (FP) PO SCH (14:42)
[2021-09-03 16:26] VITALS: TEMP 98.1
== END 2021-09-03 17:10 | disposition home or self-care (01) | DRG 291 ==
LOC: JER 15:49 → JERBED 21:13 → J4S 08-24 04:01
PROVIDERS: ADMIT Internal Medicine; ATTEND Family Medicine
PROC: 30233N1 Transfusion of Nonautologous Red Blood Cells into Peripheral Vein, Percutaneous Approach (ICD-10-PCS; 2021-08-30)
PROC: 5A1D70Z Performance of Urinary Filtration, Intermittent, Less than 6 Hours Per Day (ICD-10-PCS; 2021-08-30)
PROC: B548ZZA Ultrasonography of Superior Vena Cava, Guidance (ICD-10-PCS; 2021-08-31)
PROC: 02H633Z Insertion of Infusion Device into Right Atrium, Percutaneous Approach (ICD-10-PCS; principal; 2021-08-31 17:00)
DX: I13.2 Hypertensive heart and chronic kidney disease with heart failure and with stage 5 chronic kidney disease, or end stage renal disease (principal); N18.6 End stage renal disease; I50.43 Acute on chronic combined systolic (congestive) and diastolic (congestive) heart failure; N17.9 Acute kidney failure, unspecified; I24.8 Other forms of acute ischemic heart disease; I13.0 Hypertensive heart and chronic kidney disease with heart failure and stage 1 through stage 4 chronic kidney disease, or unspecified chronic kidney disease; E11.22 Type 2 diabetes mellitus with diabetic chronic kidney disease; Z79.4 Long term (current) use of insulin; E87.5 Hyperkalemia; D50.9 Iron deficiency anemia, unspecified; Z91.19 Patient's noncompliance with other medical treatment and regimen; N40.0 Benign prostatic hyperplasia without lower urinary tract symptoms; D63.1 Anemia in chronic kidney disease; G47.33 Obstructive sleep apnea (adult) (pediatric); I25.5 Ischemic cardiomyopathy
CPT/HCPCS: 36415; 36430; 36600; 71045-TC-FY; 71046-TC-FY; 71250-TC; 76000-TC-FY; 78452-TC; 80048; 80053; 80061; 82272; 82607; 82728; 82746; 82803; 82962; 83036; 83540; 83550; 83735; 83880; 84100; 84443; 84484; 85025; 85027; 85045; 85379; 85610; 85730; 86803; 86850; 86900; 86901; 86922; 87340; 87389; 93005; 93010; 93017; 93306-TC; 93970-TC; 94760; 99285-25; A9502; C9803; J1644; J1756; J2785; P9058; Q5106; U0003; U0005

== ENCOUNTER 2021-11-03 12:12 | Inpatient (IN) | payer OTHER ==
[2021-11-03 12:24] VITALS: BMI 32.5
[2021-11-03 13:58] LABS: BASO % 2.6 % (0-2.0); EOS % 3.9 % (0-4.5); HEMATOCRIT 30.7 % (35.4-49); HEMOGLOBIN 9.6 GM/dL (11.7-16.9); LYMPH % 19.9 % (8-40); MCH 26.1 pg (25.7-33.7); MCHC 31.3 g/dl (32.0-35.9); MEAN CELL VOLUME 83.2 fl (80-96); MEAN PLT VOLUME 7.9 fl (7.5-11.1); MONO % 8.4 % (3.8-10.2); NEUT % 65.2 % (42.8-82.8); PLATELET COUNT 551 10^3/uL (134-434); RBC 3.69 M/mm3 (4.00-5.60); RDW 15.5 % (11.9-15.9); WHITE BLOOD COUNT 7.9 K/mm3 (4.0-10.0)
[2021-11-03 14:00] LABS: EPI CELLS 24 /uL (0-25.1); HYALINE CASTS 11 /uL (0-3.1); URINE APPEARANCE CLEAR; URINE BILIRUBIN NEGATIVE (NEGATIVE); URINE COLOR YELLOW; URINE GLUCOSE (UA) TRACE (NEGATIVE); URINE KETONE TRACE (NEGATIVE); URINE LEUK ESTERASE NEGATIVE (NEGATIVE); URINE NITRITE NEGATIVE (NEGATIVE); URINE PROTEIN 4+ (NEGATIVE); URINE RBC 19 /uL (0-23.9); URINE UROBILINOGEN 0.2 mg/dL (0.2-1.0); URINE WBC 24 /uL (0-25.8)
[2021-11-03 14:05] LABS: INR 1.32 (0.83-1.09); PROTHROMBIN TIME (PATIENT) 15.2 SEC (9.7-13.0)
[2021-11-03 14:07] LABS: ACTIVATED PTT 36.7 SECONDS (25.2-36.5)
[2021-11-03 14:20] LABS: URINE BACTERIA MODERATE /uL (0-1359)
[2021-11-03 14:22] LABS: URINE CRYSTALS AMORPHOUS URATE MODE /hpf
[2021-11-03 14:28] LABS: BLOOD UREA NITROGEN 53.4 mg/dL (7-18); CALCIUM 8.7 mg/dL (8.5-10.1)
[2021-11-03 14:30] LABS: CREATININE 6.5 mg/dL (0.55-1.3)
[2021-11-03 14:31] LABS: BILIRUBIN,TOTAL 0.3 mg/dL (0.2-1)
[2021-11-03 14:32] LABS: TOT PROT 6.8 g/dl (6.4-8.2)
[2021-11-03 15:39] LABS: MAGNESIUM 2.2 mg/dL (1.8-2.4)
[2021-11-03] MEDS ORDERED: SODIUM CHLORIDE 250 ML IV PRN (15:55)
[2021-11-03] MEDS ORDERED: ACETAMINOPHEN 325 MG TABLET (FP) PO PRN (18:25)
[2021-11-03] MEDS: INSULIN (LEVEMIR) 100 UNITS/ML UNITS SQ SCH (21:39)
[2021-11-03] MEDS ORDERED: ATORVASTATIN CA 80 MG TABLET (FP) PO SCH (22:00)
[2021-11-03] MEDS: LABETALOL HCL 200 MG TABLET (FP) PO SCH (22:13)
[2021-11-03] MEDS: INSULIN SLIDING SCALE (NOVOLOG) 1 VIAL SQ SCH (22:13)
[2021-11-04] MEDS ORDERED: ZOLPIDEM TARTRATE 5 MG TABLET PO ONE (02:21)
[2021-11-04] MEDS: INSULIN SLIDING SCALE (NOVOLOG) 1 VIAL SQ SCH ×3 (06:12→17:31)
[2021-11-04] MEDS: INSULIN (LEVEMIR) 100 UNITS/ML UNITS SQ SCH (06:12)
[2021-11-04 07:48] LABS: ALBUMIN 2.7 g/dl (3.4-5.0); CALCIUM 8.1 mg/dL (8.5-10.1)
[2021-11-04 07:49] LABS: BLOOD UREA NITROGEN 60.6 mg/dL (7-18)
[2021-11-04 07:51] LABS: CREATININE 6.9 mg/dL (0.55-1.3)
[2021-11-04 07:53] LABS: BILIRUBIN,TOTAL 0.6 mg/dL (0.2-1)
[2021-11-04] MEDS ORDERED: TAMSULOSIN HCL 0.4 MG CAP PO SCH (08:30)
[2021-11-04] MEDS ORDERED: PANTOPRAZOLE 40 MG TABLET PO SCH (10:00)
[2021-11-04] MEDS ORDERED: amLODIPine BESYLATE 10 MG TABLET (FP) PO SCH (10:00)
[2021-11-04] MEDS ORDERED: CEPHALEXIN MONOHYDRATE 500 MG CAPSULE (UD) PO SCH (11:00)
[2021-11-04] MEDS: LABETALOL HCL 200 MG TABLET (FP) PO SCH (13:31)
[2021-11-04 14:56] LABS: HEMATOCRIT 27.4 % (35.4-49); MCH 26.9 pg (25.7-33.7); MCHC 32.9 g/dl (32.0-35.9); MEAN CELL VOLUME 81.9 fl (80-96); MEAN PLT VOLUME 7.3 fl (7.5-11.1); PLATELET COUNT 548 10^3/uL (134-434); RBC 3.34 M/mm3 (4.00-5.60); RDW 15.8 % (11.9-15.9); WHITE BLOOD COUNT 4.5 K/mm3 (4.0-10.0)
[2021-11-04 14:57] VITALS: TEMP 98.5
[2021-11-04] MEDS ORDERED: EPOETIN ALFA-EPBX 4,000 UNIT/ML VIAL IVPUSH ONE (15:00)
[2021-11-04 15:17] LABS: BLOOD UREA NITROGEN 61.2 mg/dL (7-18)
[2021-11-04 15:21] LABS: CREATININE 6.9 mg/dL (0.55-1.3)
[2021-11-04 17:47] VITALS: BP 171/96; PULSE 74
[2021-11-04] MEDS ORDERED: METOPROLOL TARTRATE 50 MG TABLET (FP) PO SCH (22:00)
== END 2021-11-04 18:37 | disposition home or self-care (01) | DRG 314 ==
LOC: JER 12:12 → JERBED 13:02 → INTOOBSV 13:02 → OBSVTOIN 18:23 → J4S 20:36
PROVIDERS: ADMIT Family Medicine; ATTEND Family Medicine
DX: T82.868A Thrombosis due to vascular prosthetic devices, implants and grafts, initial encounter (principal); N18.6 End stage renal disease; I13.2 Hypertensive heart and chronic kidney disease with heart failure and with stage 5 chronic kidney disease, or end stage renal disease; I50.20 Unspecified systolic (congestive) heart failure; K21.9 Gastro-esophageal reflux disease without esophagitis; E78.5 Hyperlipidemia, unspecified; N40.0 Benign prostatic hyperplasia without lower urinary tract symptoms; I25.10 Atherosclerotic heart disease of native coronary artery without angina pectoris; D50.9 Iron deficiency anemia, unspecified; K64.9 Unspecified hemorrhoids; I45.10 Unspecified right bundle-branch block; R77.8 Other specified abnormalities of plasma proteins; E66.9 Obesity, unspecified; Z68.32 Body mass index [BMI] 32.0-32.9, adult; E11.22 Type 2 diabetes mellitus with diabetic chronic kidney disease; K64.8 Other hemorrhoids; Y84.8 Other medical procedures as the cause of abnormal reaction of the patient, or of later complication, without mention of misadventure at the time of the procedure; Z99.2 Dependence on renal dialysis; Z95.1 Presence of aortocoronary bypass graft
CPT/HCPCS: 36415; 71045-TC-FY; 80048; 80053; 81003; 82962; 83735; 85025; 85027; 85610; 85730; 86803; 86850; 86900; 86901; 87040; 87086; 87340; 93005; 93010; 93306-TC; 99285-25; C9803; G0378; Q5106; U0003; U0005

== ENCOUNTER 2021-11-17 04:30 | Day surgery (SDC) | payer OTHER ==
[2021-11-15 11:12] VITALS: BMI 31.5
[2021-11-17] MEDS ORDERED: PROPOFOL 20 ML ONE ×2 (07:26→08:52)
[2021-11-17] MEDS ORDERED: MIDAZOLAM HCL 2 MG/2 ML SINGLE DOSE VIAL ONE (07:26)
[2021-11-17] MEDS ORDERED: PAPAVERINE HCL 30 MG/1 ML 10 ML VIAL NR ONE (07:27)
[2021-11-17] MEDS ORDERED: LIDOCAINE HCL 1%, 10 MG/ML (20ML VIAL) ONE (07:28)
[2021-11-17] MEDS ORDERED: ceFAZolin SODIUM 1 GM VIAL ONE (08:05)
[2021-11-17] MEDS ORDERED: LIDOCAINE HCL 1%, 10 MG/ML (20ML VIAL) NR ONE (08:23)
[2021-11-17] MEDS ORDERED: HEPARIN NA (PORCINE) 5,000 UNITS/ML 1ML VIAL SQ ONE (08:30)
[2021-11-17] MEDS ORDERED: oxyCODONE HCL 5 MG TABLET PO PRN (09:18)
[2021-11-17] MEDS ORDERED: PROMETHAZINE HCL 25 MG/1 ML VIAL IVPUSH PRN (09:18)
[2021-11-17] MEDS ORDERED: ONDANSETRON 4 MG/2 ML VIAL IVPUSH PRN (09:18)
[2021-11-17 11:42] VITALS: BP 112/69; PULSE 73; TEMP 97.5
== END 2021-11-17 11:45 | disposition home or self-care (01) ==
LOC: JASU-SURG 04:30
PROVIDERS: ATTEND Surgery
PROC: 031C0ZF Bypass Left Radial Artery to Lower Arm Vein, Open Approach (ICD-10-PCS; principal; 2021-11-17 08:00)
DX: I12.0 Hypertensive chronic kidney disease with stage 5 chronic kidney disease or end stage renal disease (principal); E11.22 Type 2 diabetes mellitus with diabetic chronic kidney disease; N18.6 End stage renal disease; Z99.2 Dependence on renal dialysis
CPT/HCPCS: 36415; 82962; 84132; 94760; J1644